=== PATIENT | male | born 1950 | race Caucasian/White ===

== ENCOUNTER 2017-03-24 16:16 | Emergency (ER) | payer MEDICARE, OTHER ==
[~2017-03-24] VITALS: Ht 198.1 cm; Wt 138.8 kg
[~2017-03-24 16:16] MED LIST: ASPI81CH PO; CEFACLOR PO; CHOL10002 PO; Coumadin3 MG PO; GABA800 PO; HYDR1TAB94 PO; WARF6 PO
[2017-03-24 17:12] LABS: BASOPHILS ABSOLUTE AUTO 0.02 K/mm3 (0.00-0.23); BASOPHILS PERCENT AUTO 0 % (0-2); EOSINOPHILS ABSOLUTE AUTO 0.11 K/mm3 (0.00-0.68); EOSINOPHILS PERCENT AUTO 1 % (0-6); Hematocrit 46.4 % (37.0-53.0); Hemoglobin 15.7 g/dL (13.5-17.5); IMMATURE GRAN ABSOLUTE AUTO 0.02 K/mm3 (0.00-0.10); IMMATURE GRAN PERCENT AUTO 0 % (0-1); LYMPHOCYTES ABSOLUTE AUTO 1.37 K/mm3 (0.84-5.20); LYMPHOCYTES PERCENT AUTO 15 % (21-46); MONOCYTES ABSOLUTE AUTO 0.94 K/mm3 (0.16-1.47); MONOCYTES PERCENT AUTO 10 % (4-13); Mean Corpuscular HGB 29.6 pg (26.0-34.0); Mean Corpuscular HGB Conc 33.8 g/dL (31.5-36.5); Mean Corpuscular Volume 87 fL (80-100); Mean Platelet Volume 11.4 fL (9.1-12.4); NEUTROPHILS ABSOLUTE AUTO 6.64 K/mm3 (1.96-9.15); NEUTROPHILS PERCENT AUTO 73 % (41-73); Platelet Count 242 K/mm3 (150-400); RDW Coefficient Variation 13.3 % (11.7-14.2); RDW Standard Deviation 42.5 fL (35.1-46.3); Red Blood Cell Count 5.31 M/mm3 (4.30-5.90)
[2017-03-24 18:38] LABS: Alanine Aminotransfer (ALT/SGP 28 U/L (12-78); Albumin, Blood 3.4 g/dL (3.4-5.0); Albumin/Globulin Ratio 0.9 (0.8-1.8); Alk Phos 68 U/L (50-136); Anion Gap 8 mmol/L (6-16); Aspartate Aminotrans (AST/SGOT 24 U/L (12-37); Bilirubin, Total 0.7 mg/dL (0.1-1.0); Blood Urea Nitrogen 17 mg/dL (8-24); Bun/Creatinine Ratio 18.5 (12.0-20.0); CO2, Blood 24 mmol/L (21-32); Calcium, Blood 8.6 mg/dL (8.5-10.1); Chloride, Blood 107 mmol/L (98-108); Creatinine, Blood 0.92 mg/dL (0.60-1.20); Globulin, Blood 3.6 g/dL (2.2-4.0); Glomerular Filtration Rate >60 (60-); Glucose, Blood 112 mg/dL (70-99); Sodium, Blood 139 mmol/L (136-145); Troponin I <0.015 ng/mL (0.000-0.040)
[2017-03-24] MEDS ORDERED: ASPI325 PO (19:18)
[2017-03-24] MEDS ORDERED: CHOL10002 PO (19:20)
== END 2017-03-24 20:04 | disposition home or self-care (01) ==
LOC: ER 16:16
PROVIDERS: Physician Assistant
DX: I48.91 Unspecified atrial fibrillation (principal); Z88.0 Allergy status to penicillin; Z88.2 Allergy status to sulfonamides; Z79.899 Other long term (current) drug therapy; Z79.01 Long term (current) use of anticoagulants; Z79.82 Long term (current) use of aspirin; E11.9 Type 2 diabetes mellitus without complications; Z86.73 Personal history of transient ischemic attack (TIA), and cerebral infarction without residual deficits; Z85.46 Personal history of malignant neoplasm of prostate
CPT/HCPCS: 71046; 80053; 83880; 84484; 85025; 93005; 93010; 99284

== ENCOUNTER 2017-03-31 13:02 | Observation (INO) | payer MEDICARE, OTHER, SELFPAY ==
[~2017-03-31] VITALS: Ht 195.6 cm; Wt 138.5 kg
[~2017-03-31 13:02] MED LIST changes: +ASPI325 PO
[2017-03-31 16:31] LABS: Anion Gap 6 mmol/L (6-16); Blood Urea Nitrogen 14 mg/dL (8-24); Bun/Creatinine Ratio 17.5 (12.0-20.0); CO2, Blood 27 mmol/L (21-32); Calcium, Blood 8.8 mg/dL (8.5-10.1); Chloride, Blood 106 mmol/L (98-108); Glomerular Filtration Rate >60 (60-); Glucose, Blood 118 mg/dL (70-99); Potassium, Blood 4.1 mmol/L (3.5-5.5); Sodium, Blood 139 mmol/L (136-145)
[2017-04-01] MEDS ORDERED: Flecainide Ace150 MG PO (09:33)
== END 2017-04-01 10:10 | disposition home or self-care (01) ==
LOC: PCU 13:02
PROVIDERS: Internal Medicine Cardiovascular Disease
DX: I48.0 Paroxysmal atrial fibrillation (principal); D68.61 Antiphospholipid syndrome; I10 Essential (primary) hypertension; E66.9 Obesity, unspecified; I51.7 Cardiomegaly; R01.1 Cardiac murmur, unspecified; I34.0 Nonrheumatic mitral (valve) insufficiency; R00.1 Bradycardia, unspecified; I44.0 Atrioventricular block, first degree; Z88.2 Allergy status to sulfonamides; Z88.0 Allergy status to penicillin; Z79.01 Long term (current) use of anticoagulants; Z79.899 Other long term (current) drug therapy; Z79.82 Long term (current) use of aspirin; Z86.73 Personal history of transient ischemic attack (TIA), and cerebral infarction without residual deficits; Z98.890 Other specified postprocedural states
CPT/HCPCS: 36415; 80048; 93005; 93010; 94762; G0378

== ENCOUNTER → 2017-05-21 | Outpatient (CLI) | payer MEDICARE, OTHER, SELFPAY ==
[~2017-05-21] MED LIST changes: +Flecainide Ace150 MG PO
[2017-05-22 14:03] LABS: Stool Occult Blood Guaiac 1 Neg (Neg)
== END ==
LOC: LAB SRC 12:25
PROVIDERS: Physician Assistant
DX: K62.5 Hemorrhage of anus and rectum (principal)
CPT/HCPCS: 82272

== ENCOUNTER 2017-11-23 14:12 | Emergency (ER) | payer MEDICARE, OTHER, SELFPAY ==
[~2017-11-23] VITALS: Ht 190.5 cm; Wt 136.1 kg
[2017-11-23 14:47] LABS: BASOPHILS ABSOLUTE AUTO 0.03 K/mm3 (0.00-0.23); BASOPHILS PERCENT AUTO 0 % (0-2); EOSINOPHILS ABSOLUTE AUTO 0.14 K/mm3 (0.00-0.68); EOSINOPHILS PERCENT AUTO 2 % (0-6); Hematocrit 45.7 % (37.0-53.0); Hemoglobin 15.1 g/dL (13.5-17.5); IMMATURE GRAN ABSOLUTE AUTO 0.04 K/mm3 (0.00-0.10); IMMATURE GRAN PERCENT AUTO 0 % (0-1); LYMPHOCYTES ABSOLUTE AUTO 1.17 K/mm3 (0.84-5.20); LYMPHOCYTES PERCENT AUTO 12 % (21-46); MONOCYTES ABSOLUTE AUTO 0.85 K/mm3 (0.16-1.47); MONOCYTES PERCENT AUTO 9 % (4-13); Mean Corpuscular HGB 28.7 pg (26.0-34.0); Mean Corpuscular Volume 87 fL (80-100); Mean Platelet Volume 10.5 fL (9.1-12.4); NEUTROPHILS ABSOLUTE AUTO 7.38 K/mm3 (1.96-9.15); NEUTROPHILS PERCENT AUTO 77 % (41-73); Platelet Count 342 K/mm3 (150-400); RDW Coefficient Variation 12.4 % (11.7-14.2); RDW Standard Deviation 39.2 fL (35.1-46.3); Red Blood Cell Count 5.26 M/mm3 (4.30-5.90); White Blood Cell Count 9.61 K/mm3 (4.00-11.30)
== END 2017-11-23 15:32 | disposition home or self-care (01) ==
LOC: ER 14:12
PROVIDERS: Internal Medicine
DX: I48.91 Unspecified atrial fibrillation (principal); I10 Essential (primary) hypertension; E66.9 Obesity, unspecified; Z86.73 Personal history of transient ischemic attack (TIA), and cerebral infarction without residual deficits
CPT/HCPCS: 36415; 84484; 85025; 92960; 93005; 93010; 99285-25; J7030

== ENCOUNTER 2018-03-03 11:38 | Emergency (ER) | payer MEDICARE, OTHER ==
[~2018-03-03] VITALS: Ht 195.6 cm; Wt 134.3 kg
[2018-03-03 12:07] LABS: BASOPHILS ABSOLUTE AUTO 0.04 K/mm3 (0.00-0.23); BASOPHILS PERCENT AUTO 1 % (0-2); EOSINOPHILS ABSOLUTE AUTO 0.16 K/mm3 (0.00-0.68); EOSINOPHILS PERCENT AUTO 2 % (0-6); Hematocrit 47.4 % (37.0-53.0); Hemoglobin 15.8 g/dL (13.5-17.5); IMMATURE GRAN ABSOLUTE AUTO 0.05 K/mm3 (0.00-0.10); IMMATURE GRAN PERCENT AUTO 1 % (0-1); LYMPHOCYTES ABSOLUTE AUTO 0.87 K/mm3 (0.84-5.20); LYMPHOCYTES PERCENT AUTO 11 % (21-46); MONOCYTES ABSOLUTE AUTO 0.95 K/mm3 (0.16-1.47); MONOCYTES PERCENT AUTO 12 % (4-13); Mean Corpuscular HGB 29.1 pg (26.0-34.0); Mean Corpuscular HGB Conc 33.3 g/dL (31.5-36.5); Mean Platelet Volume 10.8 fL (9.1-12.4); NEUTROPHILS ABSOLUTE AUTO 5.99 K/mm3 (1.96-9.15); NEUTROPHILS PERCENT AUTO 74 % (41-73); Platelet Count 291 K/mm3 (150-400); RDW Coefficient Variation 14.5 % (11.7-14.2); RDW Standard Deviation 45.6 fL (35.1-46.3); Red Blood Cell Count 5.43 M/mm3 (4.30-5.90); White Blood Cell Count 8.06 K/mm3 (4.00-11.30)
[2018-03-03 12:10] LABS: Mean Corpuscular Volume 87 fL (80-100)
[2018-03-03 12:19] LABS: International Normalized Ratio 2.71; Prothrombin Time Results 26.4 Sec (9.7-11.5)
[2018-03-03 12:34] LABS: Alanine Aminotransfer (ALT/SGP 30 U/L (12-78); Albumin, Blood 3.5 g/dL (3.4-5.0); Albumin/Globulin Ratio 0.9 (0.8-1.8); Alk Phos 70 U/L (50-136); Anion Gap 7 mmol/L (6-16); Aspartate Aminotrans (AST/SGOT 25 U/L (12-37); Bilirubin, Total 0.8 mg/dL (0.1-1.0); Blood Urea Nitrogen 13 mg/dL (8-24); Bun/Creatinine Ratio 13.7 (12.0-20.0); CO2, Blood 26 mmol/L (21-32); Calcium, Blood 9.1 mg/dL (8.5-10.1); Chloride, Blood 107 mmol/L (98-108); Creatinine, Blood 0.95 mg/dL (0.60-1.20); Globulin, Blood 3.9 g/dL (2.2-4.0); Glomerular Filtration Rate >60 (60-); Glucose, Blood 123 mg/dL (70-99); Potassium, Blood 4.4 mmol/L (3.5-5.5); Sodium, Blood 140 mmol/L (136-145); Total Protein, Blood 7.4 g/dL (6.4-8.2)
[2018-03-03 12:35] LABS: Troponin I <0.015 ng/mL (0.000-0.040)
== END 2018-03-03 13:45 | disposition home or self-care (01) ==
LOC: ER 11:38
PROVIDERS: Physician Assistant
DX: I48.91 Unspecified atrial fibrillation (principal); E11.9 Type 2 diabetes mellitus without complications; Z88.0 Allergy status to penicillin; Z88.2 Allergy status to sulfonamides; Z79.899 Other long term (current) drug therapy; Z79.82 Long term (current) use of aspirin; Z79.01 Long term (current) use of anticoagulants; Z86.73 Personal history of transient ischemic attack (TIA), and cerebral infarction without residual deficits
CPT/HCPCS: 36415; 71046; 80053; 84484; 85025; 85610; 92960; 93005; 93010; 99285-25; J7030

== ENCOUNTER 2018-05-27 14:35 | Emergency (ER) | payer MEDICARE, OTHER ==
[~2018-05-27] VITALS: Ht 195.6 cm; Wt 136.1 kg
[2018-05-27 15:16] LABS: BASOPHILS ABSOLUTE AUTO 0.02 K/mm3 (0.00-0.23); BASOPHILS PERCENT AUTO 0 % (0-2); EOSINOPHILS PERCENT AUTO 1 % (0-6); Hematocrit 43.5 % (37.0-53.0); Hemoglobin 13.9 g/dL (13.5-17.5); IMMATURE GRAN ABSOLUTE AUTO 0.03 K/mm3 (0.00-0.10); IMMATURE GRAN PERCENT AUTO 0 % (0-1); LYMPHOCYTES ABSOLUTE AUTO 0.81 K/mm3 (0.84-5.20); LYMPHOCYTES PERCENT AUTO 11 % (21-46); MONOCYTES PERCENT AUTO 5 % (4-13); Mean Corpuscular HGB 28.4 pg (26.0-34.0); Mean Corpuscular Volume 89 fL (80-100); NEUTROPHILS ABSOLUTE AUTO 6.32 K/mm3 (1.96-9.15); NEUTROPHILS PERCENT AUTO 82 % (41-73); Platelet Count 296 K/mm3 (150-400); RDW Coefficient Variation 12.6 % (11.7-14.2); RDW Standard Deviation 41.3 fL (35.1-46.3); White Blood Cell Count 7.68 K/mm3 (4.00-11.30)
[2018-05-27 15:40] LABS: Alanine Aminotransfer (ALT/SGP 34 U/L (12-78); Albumin, Blood 3.3 g/dL (3.4-5.0); Albumin/Globulin Ratio 0.9 (0.8-1.8); Alk Phos 67 U/L (50-136); Anion Gap 7 mmol/L (6-16); Aspartate Aminotrans (AST/SGOT 19 U/L (12-37); Bilirubin, Total 0.4 mg/dL (0.1-1.0); Blood Urea Nitrogen 12 mg/dL (8-24); Bun/Creatinine Ratio 14.4 (12.0-20.0); CO2, Blood 28 mmol/L (21-32); Calcium, Blood 8.7 mg/dL (8.5-10.1); Chloride, Blood 108 mmol/L (98-108); Creatinine, Blood 0.83 mg/dL (0.60-1.20); Globulin, Blood 3.6 g/dL (2.2-4.0); Glomerular Filtration Rate >60 (60-); Glucose, Blood 205 mg/dL (70-99); Potassium, Blood 4.3 mmol/L (3.5-5.5); Sodium, Blood 143 mmol/L (136-145); Total Protein, Blood 6.9 g/dL (6.4-8.2); Troponin I <0.015 ng/mL (0.000-0.040)
[2018-05-27 15:46] LABS: International Normalized Ratio 3.37
== END 2018-05-27 20:00 | disposition home or self-care (01) ==
LOC: ER 14:35
PROVIDERS: Physician Assistant
DX: I48.91 Unspecified atrial fibrillation (principal); Z88.0 Allergy status to penicillin; Z88.2 Allergy status to sulfonamides; Z79.899 Other long term (current) drug therapy; Z79.01 Long term (current) use of anticoagulants; Z79.82 Long term (current) use of aspirin; E11.9 Type 2 diabetes mellitus without complications; Z86.73 Personal history of transient ischemic attack (TIA), and cerebral infarction without residual deficits; Z85.46 Personal history of malignant neoplasm of prostate
CPT/HCPCS: 36415; 71046; 80053; 84484; 85025; 85610; 92960; 93005; 93010; 99285-25

== ENCOUNTER → 2018-06-13 | Outpatient (CLI) | payer MEDICARE, OTHER | END | disposition home or self-care (01) | LOC: LAB SHORT 15:04 → PLD 15:04 | DX: D22.5 Melanocytic nevi of trunk (principal) | CPT/HCPCS: 88305 ==

== ENCOUNTER 2018-07-14 08:24 | Emergency (ER) | payer MEDICARE, OTHER ==
[~2018-07-14] VITALS: Ht 195.6 cm; Wt 136.1 kg
[2018-07-14] MEDS ORDERED: PRED5 PO (08:57)
[2018-07-14] MEDS ORDERED: WARF4 PO (08:57)
[2018-07-14 09:30] LABS: BASOPHILS ABSOLUTE AUTO 0.05 K/mm3 (0.00-0.23); BASOPHILS PERCENT AUTO 1 % (0-2); EOSINOPHILS ABSOLUTE AUTO 0.14 K/mm3 (0.00-0.68); EOSINOPHILS PERCENT AUTO 2 % (0-6); Hemoglobin 10.9 g/dL (13.5-17.5); IMMATURE GRAN ABSOLUTE AUTO 0.03 K/mm3 (0.00-0.10); IMMATURE GRAN PERCENT AUTO 1 % (0-1); LYMPHOCYTES PERCENT AUTO 12 % (21-46); MONOCYTES ABSOLUTE AUTO 0.66 K/mm3 (0.16-1.47); MONOCYTES PERCENT AUTO 11 % (4-13); Mean Corpuscular HGB 26.5 pg (26.0-34.0); Mean Corpuscular HGB Conc 31.1 g/dL (31.5-36.5); Mean Corpuscular Volume 85 fL (80-100); NEUTROPHILS ABSOLUTE AUTO 4.28 K/mm3 (1.96-9.15); NEUTROPHILS PERCENT AUTO 73 % (41-73); Platelet Count 273 K/mm3 (150-400); RDW Coefficient Variation 13.2 % (11.7-14.2); RDW Standard Deviation 40.5 fL (35.1-46.3); Red Blood Cell Count 4.12 M/mm3 (4.30-5.90); White Blood Cell Count 5.86 K/mm3 (4.00-11.30)
[2018-07-14 09:45] LABS: International Normalized Ratio 3.07; Prothrombin Time Results 29.4 Sec (9.7-11.5)
[2018-07-14 09:56] LABS: Alanine Aminotransfer (ALT/SGP 26 U/L (12-78); Albumin, Blood 3.3 g/dL (3.4-5.0); Alk Phos 59 U/L (50-136); Anion Gap 5 mmol/L (6-16); Aspartate Aminotrans (AST/SGOT 17 U/L (12-37); Bilirubin, Total 0.5 mg/dL (0.1-1.0); Blood Urea Nitrogen 10 mg/dL (8-24); Bun/Creatinine Ratio 11.6 (12.0-20.0); CO2, Blood 26 mmol/L (21-32); Calcium, Blood 8.3 mg/dL (8.5-10.1); Chloride, Blood 109 mmol/L (98-108); Creatinine, Blood 0.86 mg/dL (0.60-1.20); Globulin, Blood 3.4 g/dL (2.2-4.0); Glomerular Filtration Rate >60 (60-); Glucose, Blood 156 mg/dL (70-99); Potassium, Blood 3.6 mmol/L (3.5-5.5); Sodium, Blood 140 mmol/L (136-145); Total Protein, Blood 6.7 g/dL (6.4-8.2); Troponin I 0.025 ng/mL (0.000-0.040)
== END 2018-07-14 14:00 | disposition home or self-care (01) ==
LOC: ER 08:24
PROVIDERS: Physician Assistant
DX: I48.91 Unspecified atrial fibrillation (principal); Z88.0 Allergy status to penicillin; Z88.2 Allergy status to sulfonamides; Z79.01 Long term (current) use of anticoagulants; Z79.52 Long term (current) use of systemic steroids; E11.9 Type 2 diabetes mellitus without complications; Z85.46 Personal history of malignant neoplasm of prostate
CPT/HCPCS: 36415; 71046; 80053; 83880; 84484; 85025; 85610; 92960; 93005; 93010; 96361-59; 96374-59; 99285-25; J2704; J7030

== ENCOUNTER 2018-08-12 16:33 | Inpatient (IN) | payer MEDICARE, OTHER ==
[~2018-08-12] VITALS: Ht 195.6 cm; Wt 137.8 kg
[~2018-08-12 16:33] MED LIST changes: +PRED5 PO; +WARF4 PO
[2018-08-12] MEDS ORDERED: ASPI81CH PO (16:59)
[2018-08-12] MEDS ORDERED: GABA800 PO (16:59)
[2018-08-12] MEDS ORDERED: CHOL10002 PO (16:59)
[2018-08-12 17:10] LABS: BASOPHILS ABSOLUTE AUTO 0.04 K/mm3 (0.00-0.23); BASOPHILS PERCENT AUTO 1 % (0-2); EOSINOPHILS ABSOLUTE AUTO 0.16 K/mm3 (0.00-0.68); EOSINOPHILS PERCENT AUTO 3 % (0-6); Hematocrit 32.1 % (37.0-53.0); Hemoglobin 9.6 g/dL (13.5-17.5); IMMATURE GRAN ABSOLUTE AUTO 0.02 K/mm3 (0.00-0.10); IMMATURE GRAN PERCENT AUTO 0 % (0-1); LYMPHOCYTES ABSOLUTE AUTO 0.81 K/mm3 (0.84-5.20); LYMPHOCYTES PERCENT AUTO 13 % (21-46); MONOCYTES ABSOLUTE AUTO 0.75 K/mm3 (0.16-1.47); MONOCYTES PERCENT AUTO 12 % (4-13); Mean Corpuscular HGB 24.4 pg (26.0-34.0); Mean Corpuscular HGB Conc 29.9 g/dL (31.5-36.5); Mean Corpuscular Volume 82 fL (80-100); Mean Platelet Volume 11.4 fL (9.1-12.4); NEUTROPHILS ABSOLUTE AUTO 4.38 K/mm3 (1.96-9.15); NEUTROPHILS PERCENT AUTO 71 % (41-73); Platelet Count 320 K/mm3 (150-400); RDW Coefficient Variation 13.7 % (11.7-14.2); Red Blood Cell Count 3.93 M/mm3 (4.30-5.90); White Blood Cell Count 6.16 K/mm3 (4.00-11.30)
[2018-08-12 17:21] LABS: Alanine Aminotransfer (ALT/SGP 26 U/L (12-78); Albumin, Blood 3.7 g/dL (3.4-5.0); Alk Phos 66 U/L (50-136); Anion Gap 5 mmol/L (6-16); Aspartate Aminotrans (AST/SGOT 20 U/L (12-37); Bilirubin, Total 0.4 mg/dL (0.1-1.0); Blood Urea Nitrogen 16 mg/dL (8-24); Bun/Creatinine Ratio 18.5 (12.0-20.0); CO2, Blood 28 mmol/L (21-32); Calcium, Blood 8.8 mg/dL (8.5-10.1); Chloride, Blood 106 mmol/L (98-108); Creatinine, Blood 0.87 mg/dL (0.60-1.20); Globulin, Blood 3.7 g/dL (2.2-4.0); Glomerular Filtration Rate >60 (60-); Glucose, Blood 124 mg/dL (70-99); Potassium, Blood 3.8 mmol/L (3.5-5.5); Sodium, Blood 139 mmol/L (136-145); Total Protein, Blood 7.4 g/dL (6.4-8.2)
[2018-08-12 17:41] LABS: International Normalized Ratio 2.15; Prothrombin Time Results 21.3 Sec (9.7-11.5)
[2018-08-12 22:54] LABS: Hematocrit 28.2 % (37.0-53.0); Hemoglobin 8.6 g/dL (13.5-17.5)
[2018-08-13 04:52] LABS: Hematocrit 28.8 % (37.0-53.0); Hemoglobin 8.7 g/dL (13.5-17.5); Mean Corpuscular HGB 24.4 pg (26.0-34.0); Mean Corpuscular HGB Conc 30.2 g/dL (31.5-36.5); Mean Corpuscular Volume 81 fL (80-100); Mean Platelet Volume 11.3 fL (9.1-12.4); Platelet Count 290 K/mm3 (150-400); RDW Coefficient Variation 13.7 % (11.7-14.2); RDW Standard Deviation 40.1 fL (35.1-46.3); Red Blood Cell Count 3.56 M/mm3 (4.30-5.90)
[2018-08-13 05:06] LABS: International Normalized Ratio 2.09; Prothrombin Time Results 20.7 Sec (9.7-11.5)
[2018-08-13 05:17] LABS: Anion Gap 6 mmol/L (6-16); Blood Urea Nitrogen 13 mg/dL (8-24); Bun/Creatinine Ratio 15.7 (12.0-20.0); CO2, Blood 27 mmol/L (21-32); Calcium, Blood 8.6 mg/dL (8.5-10.1); Chloride, Blood 108 mmol/L (98-108); Creatinine, Blood 0.83 mg/dL (0.60-1.20); Glomerular Filtration Rate >60 (60-); Glucose, Blood 115 mg/dL (70-99); Potassium, Blood 4.1 mmol/L (3.5-5.5); Sodium, Blood 141 mmol/L (136-145)
--- NOTE | 2018-08-13 06:34 | NUR ---
PCU NOC SHIFT - ADMIT - SUMMARY PATIENT ALERT AND ORIENTED X4. ON ROOM AIR L/S CLEAR. HEART MURMUR NOTED - MILD. PATIENT DENIES ANY PAIN T/O SHIFT. PATIENT HAVING BRIGHT RED LIQUID STOOL. MD MCCORMACK CONSULTED IN ER - PATIENT TO HAVE GI SCOPE AT 1200 TODAY. PATIENT UNDERSTAND SITUATION AND DENIES ANY QUESTIONS. PATIENT HYPERTENSIVE T/O SHIFT. WILL CONTINUE TO MONITOR AND REPORT TO DAYSHIFT RN.
--- NOTE | 2018-08-13 07:20 | NUR ---
RECEIVED REPORT FROM MICKIE NGUYEN, AND ASSUMED CARE OF PT.
--- NOTE | 2018-08-13 11:35 | NUR ---
Pt taken to Day surgery, will await return. Stable at this time.
--- NOTE | 2018-08-13 11:42 | NUR ---
PT TRANSPORTED TO [facility]. AGREES WITH PLANNED PROCEDURE. STATES HE DRANK BOWEL PREP, LAST BM HE STATES SOME BROWN COLOR BUT NO SOLID.
--- NOTE | 2018-08-13 12:00 | NUR ---
08/13/18 1200 Reuben Walters PATIENT DETERMINED TO BE ASA APPROPRIATE FOR PROPOFOL SEDATION PRIOR TO START OF PROCEDURE BY 3-LEAD EKG REVIEWED WITH PHYSICIAN PRIOR TO START OF PROCEDURE.Patient to ENDO 1History, Chart, Medications and Allergies reviewed before start of procedure.MONITOR INTACT WITH CONTINUOUS PULSE OXIMETRY AND INTERMITTENT BP.O2 VIA N/C INTACT THROUGHOUT SEDATION/PROCEDURE.
--- NOTE | 2018-08-13 12:00 | NUR ---
PATIENT ESCORTED TO GI FOR COLONOSCOPY.
--- NOTE | 2018-08-13 15:38 | NUR ---
NURSING SUMMARY ALERT/ORIENTED X 4. SR ON MONITOR, HR 60'S AND 70'S, HYPERTENSIVE THIS AM, PT STATES THAT HAPPENS WHEN HE IS ANXIOUS LIKE WITH HAVING TO DO A COLONOSCOPY. LUNGS CLEAR/DIMINISHED AT BASES, ROOM AIR, SATS 98%. HYPERACTIVE BOWEL SOUNDS, DRANK HALF OF THE GALLON OF GOLYTELY, REFUSING TO DRINK MORE DUE TO THE TASTE, FREQUENT BM'S OF BROWN LIQUID STOOL. PT WAS NPO OF 0800, WENT FOR COLONOSCOPY AT NOON BUT PT WAS NOT CLEAR ENOUGH FOR DR. MCCORMACK TO VISIUAL. PT WILL NEED TO GO BACK FOR ANOTHER COLONOSCOPY TOMORROW MORNING AT 0800 AFTER TAKING SUREPREP TONIGHT AND IN THE MORNING. DR. MCCORMACK PROVIDED PT'S WITH A PRESCRIPTION FOR SUREPREP BECAUSE PT REFUSES TO DRINK GOLYTELY. IS PICKING THE PRESCRIPTION UP NOW. PLACED HOME MED ORDERS FOR PT TO DRINK 1ST BOTTLE OF SUREPREP AT 1800 TONIGHT, THEN ONLY HAVE WATER AND ICE CHIPS UNTIL 0600 TOMORROW MORNING, PT TO DRINK 2ND BOTTLE OF SUREPREP TOMORROW MORNING AT 0400 FOLLOWED BY WATER AND ICE, NPO AT 0600. COLONOSCOPY SCHEDULED FOR 0800 TOMORRO MORNING. PT IS AWARE OF THE REGIMEN. PT AMBULATES INDEPENDENTLY TO THE BATHROOM. DENIES DIZZINESS. STEADY AMBULATION. RIGHT AC IV SITE INFUSING LR AT 75 ML/HR.
--- NOTE | 2018-08-13 16:27 | NUR ---
REPORT CALLED TO [facility] RN, WHOM WILL ASSUME CARE OF PT WHEN TRANSFERRED TO ROOM 332.
--- NOTE | 2018-08-13 18:15 | NUR ---
SHIFT SUMMARY: TRANSFER FROM [place] [id number] VIA W/C BY CHIEF RELAY TESTER. A/O X 4. DENIES PAIN N/V AND SOB. TOLERATING CLEAR LIQUIDS AND BOWEL PREP STARTED. AT BEDSIDE. PATIENT AWARE OF PLAN OF CARE AND IS AGREEABLE.
--- NOTE | 2018-08-14 07:44 | NUR ---
PT TRANSPORTED TO [facility]. AGREES WITH PLANNED PROCEDURE. STATES LAST BM CLEAR.
--- NOTE | 2018-08-14 08:07 | NUR ---
0730 PT TO DAY SURGERY. CLEAR BM PIOR TO DAY SURGERY ARRIVING.
--- NOTE | 2018-08-14 08:31 | NUR ---
08/14/18 0831 Reuben Walters PATIENT DETERMINED TO BE ASA APPROPRIATE FOR PROPOFOL SEDATION PRIOR TO START OF PROCEDURE BY 3-LEAD EKG REVIEWED WITH PHYSICIAN PRIOR TO START OF PROCEDURE.Patient to ENDO 1History, Chart, Medications and Allergies reviewed before start of procedure.Glasses RemovedMONITOR INTACT WITH CONTINUOUS PULSE OXIMETRY AND INTERMITTENT BP.O2 VIA N/C INTACT THROUGHOUT SEDATION/PROCEDURE.
[2018-08-14 12:05] LABS: BASOPHILS ABSOLUTE AUTO 0.03 K/mm3 (0.00-0.23); BASOPHILS PERCENT AUTO 1 % (0-2); EOSINOPHILS ABSOLUTE AUTO 0.18 K/mm3 (0.00-0.68); EOSINOPHILS PERCENT AUTO 4 % (0-6); Hematocrit 28.7 % (37.0-53.0); Hemoglobin 8.6 g/dL (13.5-17.5); IMMATURE GRAN ABSOLUTE AUTO 0.01 K/mm3 (0.00-0.10); IMMATURE GRAN PERCENT AUTO 0 % (0-1); LYMPHOCYTES ABSOLUTE AUTO 0.64 K/mm3 (0.84-5.20); LYMPHOCYTES PERCENT AUTO 13 % (21-46); MONOCYTES ABSOLUTE AUTO 0.64 K/mm3 (0.16-1.47); MONOCYTES PERCENT AUTO 13 % (4-13); Mean Corpuscular HGB 24.7 pg (26.0-34.0); Mean Corpuscular Volume 83 fL (80-100); Mean Platelet Volume 11.2 fL (9.1-12.4); NEUTROPHILS ABSOLUTE AUTO 3.58 K/mm3 (1.96-9.15); NEUTROPHILS PERCENT AUTO 71 % (41-73); Platelet Count 267 K/mm3 (150-400); RDW Standard Deviation 41.7 fL (35.1-46.3); Red Blood Cell Count 3.48 M/mm3 (4.30-5.90); White Blood Cell Count 5.08 K/mm3 (4.00-11.30)
[2018-08-14 12:19] LABS: International Normalized Ratio 1.8; Prothrombin Time Results 18.1 Sec (9.7-11.5)
[2018-08-14] MEDS ORDERED: HYDR25SUP PR (14:35)
--- NOTE | 2018-08-14 15:34 | NUR ---
1458 PATIENT DCD HOME WITH VIA PERSONAL CAR, TRANSPORTED VIA W/C. ALL MEDICATION ORDERS REVIEWED WITH PATIENT AND ALONG WITH EDUCATION. IV REMOVED WITH NO ISSUES. ALL BELONGINGS SENT WITH PATIENT.
== END 2018-08-14 14:58 | disposition home or self-care (01) | DRG 394 ==
LOC: ER 16:33 → MEDS 18:49 → PCU 18:49 → MEDS 20:29 → PCU 20:31 → MEDS 08-13 16:36
PROVIDERS: Emergency Medicine; Internal Medicine; Internal Medicine Gastroenterology; ADMIT Internal Medicine
PROC: 0DBN8ZX Excision of Sigmoid Colon, Via Natural or Artificial Opening Endoscopic, Diagnostic (ICD-10-PCS; 2018-08-14)
PROC: 0DBC8ZX Excision of Ileocecal Valve, Via Natural or Artificial Opening Endoscopic, Diagnostic (ICD-10-PCS; 2018-08-14)
PROC: 0DBH8ZX Excision of Cecum, Via Natural or Artificial Opening Endoscopic, Diagnostic (ICD-10-PCS; 2018-08-14)
PROC: 0W3P8ZZ Control Bleeding in Gastrointestinal Tract, Via Natural or Artificial Opening Endoscopic (ICD-10-PCS; principal; 2018-08-14 08:00)
PROC: 0DBK8ZX Excision of Ascending Colon, Via Natural or Artificial Opening Endoscopic, Diagnostic (ICD-10-PCS; 2018-08-14 08:00)
DX: K62.7 Radiation proctitis (principal); D62 Acute posthemorrhagic anemia; D68.61 Antiphospholipid syndrome; M35.3 Polymyalgia rheumatica; I48.91 Unspecified atrial fibrillation; K57.30 Diverticulosis of large intestine without perforation or abscess without bleeding; K64.8 Other hemorrhoids; E11.9 Type 2 diabetes mellitus without complications; Z86.73 Personal history of transient ischemic attack (TIA), and cerebral infarction without residual deficits; Z79.4 Long term (current) use of insulin; Z85.46 Personal history of malignant neoplasm of prostate; Z79.82 Long term (current) use of aspirin; Z79.01 Long term (current) use of anticoagulants; Z91.09 Other allergy status, other than to drugs and biological substances
CPT/HCPCS: 36415; 74176; 80048; 80053; 85014; 85018; 85025; 85027; 85610; 85730; 86850; 86900; 86901; 93005; 93010; 99285-25; C9113; J2704; J7120

== ENCOUNTER 2018-08-25 08:43 | Emergency (ER) | payer MEDICARE, OTHER ==
[~2018-08-25] VITALS: Ht 188 cm; Wt 113.4 kg
[~2018-08-25 08:43] MED LIST changes: +HYDR25SUP PR
[2018-08-25 10:09] LABS: BASOPHILS ABSOLUTE AUTO 0.04 K/mm3 (0.00-0.23); BASOPHILS PERCENT AUTO 1 % (0-2); EOSINOPHILS ABSOLUTE AUTO 0.19 K/mm3 (0.00-0.68); EOSINOPHILS PERCENT AUTO 4 % (0-6); Hematocrit 34.9 % (37.0-53.0); Hemoglobin 10.2 g/dL (13.5-17.5); IMMATURE GRAN ABSOLUTE AUTO 0.03 K/mm3 (0.00-0.10); IMMATURE GRAN PERCENT AUTO 1 % (0-1); LYMPHOCYTES ABSOLUTE AUTO 0.58 K/mm3 (0.84-5.20); LYMPHOCYTES PERCENT AUTO 11 % (21-46); MONOCYTES ABSOLUTE AUTO 0.57 K/mm3 (0.16-1.47); MONOCYTES PERCENT AUTO 11 % (4-13); Mean Corpuscular HGB 24.1 pg (26.0-34.0); Mean Corpuscular HGB Conc 29.2 g/dL (31.5-36.5); Mean Platelet Volume 11.6 fL (9.1-12.4); NEUTROPHILS PERCENT AUTO 74 % (41-73); Platelet Count 352 K/mm3 (150-400); RDW Coefficient Variation 15.8 % (11.7-14.2); RDW Standard Deviation 45.1 fL (35.1-46.3); Red Blood Cell Count 4.24 M/mm3 (4.30-5.90); White Blood Cell Count 5.41 K/mm3 (4.00-11.30)
[2018-08-25 10:14] LABS: Mean Corpuscular Volume 82 fL (80-100)
[2018-08-25 11:05] LABS: Alanine Aminotransfer (ALT/SGP 23 U/L (12-78); Albumin, Blood 3.6 g/dL (3.4-5.0); Alk Phos 67 U/L (50-136); Anion Gap 7 mmol/L (6-16); Aspartate Aminotrans (AST/SGOT 27 U/L (12-37); Bilirubin, Total 0.9 mg/dL (0.1-1.0); Blood Urea Nitrogen 12 mg/dL (8-24); Bun/Creatinine Ratio 12.7 (12.0-20.0); CO2, Blood 27 mmol/L (21-32); Calcium, Blood 9.1 mg/dL (8.5-10.1); Chloride, Blood 106 mmol/L (98-108); Creatinine, Blood 0.94 mg/dL (0.60-1.20); Globulin, Blood 3.7 g/dL (2.2-4.0); Glomerular Filtration Rate >60 (60-); Glucose, Blood 113 mg/dL (70-99); Potassium, Blood 4.6 mmol/L (3.5-5.5); Sodium, Blood 140 mmol/L (136-145); Total Protein, Blood 7.3 g/dL (6.4-8.2); Troponin I <0.015 ng/mL (0.000-0.040)
[2018-08-25 11:42] LABS: International Normalized Ratio 2.13; Prothrombin Time Results 21.1 Sec (9.7-11.5)
== END 2018-08-25 13:11 | disposition home or self-care (01) ==
LOC: ER 08:43
PROVIDERS: Emergency Medicine
DX: R00.2 Palpitations (principal); E11.9 Type 2 diabetes mellitus without complications; I48.91 Unspecified atrial fibrillation; Z86.73 Personal history of transient ischemic attack (TIA), and cerebral infarction without residual deficits; Z88.0 Allergy status to penicillin; Z88.2 Allergy status to sulfonamides; Z88.8 Allergy status to other drugs, medicaments and biological substances; Z91.041 Radiographic dye allergy status; Z79.01 Long term (current) use of anticoagulants; Z79.82 Long term (current) use of aspirin
CPT/HCPCS: 71046; 80053; 83690; 84484; 85025; 85610; 93005; 93010; 99285-25

== ENCOUNTER → 2019-04-05 | Outpatient (CLI) | payer MEDICARE, OTHER ==
[2019-04-05 14:55] LABS: Microalb/Creat Ratio UR, Rand 40.156 mg/g (0.000-30.000); Microalbumin, Random Urine 25.7 mg/L (0.000-20.000)
== END | disposition home or self-care (01) ==
LOC: LAB SHORT 13:01 → LAB 13:01
PROVIDERS: Hospitalist
DX: I12.9 Hypertensive chronic kidney disease with stage 1 through stage 4 chronic kidney disease, or unspecified chronic kidney disease (principal); N18.9 Chronic kidney disease, unspecified; R80.9 Proteinuria, unspecified
CPT/HCPCS: 82043; 82570

== ENCOUNTER 2019-05-10 10:32 | Day surgery (SDC) | payer MEDICARE, OTHER ==
[~2019-05-10] VITALS: Ht 195.6 cm; Wt 136.0 kg
[2019-05-10] MEDS ORDERED: PACERONE100 M1 PO (11:21)
[2019-05-10] MEDS ORDERED: LOSA25 PO (11:22)
--- NOTE | 2019-05-10 12:10 | NUR ---
PT TOLERATES MARBIN PROCEDURE WELL. VSS. NADN. PROVIDER DISCUSSING PLAN OF CARE.
== END 2019-05-10 22:54 | disposition home or self-care (01) ==
LOC: MHTC 10:32
DX: I05.0 Rheumatic mitral stenosis (principal); I48.0 Paroxysmal atrial fibrillation; D68.61 Antiphospholipid syndrome; E66.9 Obesity, unspecified; M35.3 Polymyalgia rheumatica; G47.33 Obstructive sleep apnea (adult) (pediatric); G62.9 Polyneuropathy, unspecified; Z79.01 Long term (current) use of anticoagulants; Z79.82 Long term (current) use of aspirin; Z79.899 Other long term (current) drug therapy; Z85.46 Personal history of malignant neoplasm of prostate; Z86.73 Personal history of transient ischemic attack (TIA), and cerebral infarction without residual deficits; Z87.891 Personal history of nicotine dependence; Z88.0 Allergy status to penicillin; Z88.2 Allergy status to sulfonamides; Z88.8 Allergy status to other drugs, medicaments and biological substances
CPT/HCPCS: 76376; 93312; 93325; J2250; J3010; J7040

== ENCOUNTER 2020-07-13 09:28 | Inpatient (IN) | payer MEDICARE, OTHER ==
[~2020-07-13] VITALS: Ht 195.6 cm; Wt 138.7 kg
[~2020-07-13 09:28] MED LIST changes: +Aspir 8181 MG PO; +LOSA25 PO; +PACERONE100 M1 PO
[2020-07-13] MEDS ORDERED: THERA-D2000 UNIT PO (09:58)
[2020-07-13 10:12] LABS: BASOPHILS ABSOLUTE AUTO 0.04 K/mm3 (0.00-0.23); BASOPHILS PERCENT AUTO 1 % (0-2); EOSINOPHILS PERCENT AUTO 3 % (0-6); Hematocrit 46.9 % (37.0-53.0); Hemoglobin 15.6 g/dL (13.5-17.5); IMMATURE GRAN ABSOLUTE AUTO 0.02 K/mm3 (0.00-0.10); IMMATURE GRAN PERCENT AUTO 0 % (0-1); LYMPHOCYTES ABSOLUTE AUTO 0.87 K/mm3 (0.84-5.20); LYMPHOCYTES PERCENT AUTO 12 % (21-46); MONOCYTES ABSOLUTE AUTO 0.81 K/mm3 (0.16-1.47); MONOCYTES PERCENT AUTO 11 % (4-13); Mean Corpuscular HGB 29.2 pg (26.0-34.0); Mean Corpuscular HGB Conc 33.3 g/dL (31.5-36.5); Mean Corpuscular Volume 88 fL (80-100); Mean Platelet Volume 10.7 fL (9.1-12.4); NEUTROPHILS ABSOLUTE AUTO 5.49 K/mm3 (1.96-9.15); NEUTROPHILS PERCENT AUTO 74 % (41-73); Platelet Count 284 K/mm3 (150-400); RDW Coefficient Variation 13.2 % (11.7-14.2); RDW Standard Deviation 42.5 fL (35.1-46.3); Red Blood Cell Count 5.35 M/mm3 (4.30-5.90); White Blood Cell Count 7.43 K/mm3 (4.00-11.30)
[2020-07-13 10:43] LABS: Alanine Aminotransfer (ALT/SGP 25 U/L (12-78); Albumin, Blood 3.5 g/dL (3.4-5.0); Alk Phos 71 U/L (50-136); Anion Gap 5 mmol/L (6-16); Aspartate Aminotrans (AST/SGOT 20 U/L (12-37); Bilirubin, Total 0.9 mg/dL (0.1-1.0); Blood Urea Nitrogen 12 mg/dL (8-24); Bun/Creatinine Ratio 13.7 (12.0-20.0); CO2, Blood 26 mmol/L (21-32); Calcium, Blood 8.5 mg/dL (8.5-10.1); Chloride, Blood 107 mmol/L (98-108); Creatinine, Blood 0.88 mg/dL (0.60-1.20); Globulin, Blood 3.6 g/dL (2.2-4.0); Glomerular Filtration Rate >60 (60-); Glucose, Blood 103 mg/dL (70-99); Sodium, Blood 138 mmol/L (136-145); Total Protein, Blood 7.1 g/dL (6.4-8.2)
[2020-07-13 10:46] LABS: Troponin I 0.523 ng/mL (0.000-0.040)
[2020-07-13 12:24] LABS: International Normalized Ratio 2.59; Prothrombin Time Results 26.5 Sec (9.7-11.5)
--- NOTE | 2020-07-13 15:08 | NUR ---
PT ARRIVED ON UNIT, TRANSFERRED TO ICU BED, ASKED TO REMOVE HIS SHORTS, AND WITH THAT EXERTION HE EXPRESSED HIS PAIN WENT FROM A 3 TO 6 WITH SOME SHORTNESS OF BREATH. HE BEGAN TO SETTLE IN TO THE BED, MONITORS PLACED. HEART RATE IN THE 120'S LOOKS LIKE AFLUTTER ON THE MONITOR. HE IS STATING THE PAIN WENT UP IN HIS NECK AND JAW AND FELT LIKE HE HAS A "FROG IN HIS THROAT". PT BEGAN TALKING AND TELLING STORIES THROUGH THE ENTIRE ADMISSION PROCESS, I WAS ABLE TO STOP HIS STORY TELLING TO ASK QUESTIONS AND HE CONTINUED. HIS BLOOD PRESSURE REMAINED IN THE 180'S/90'S. WAS CONSULTED AND UPDATED PER STATE ARCHIVIST BLAS, ORDERS RECEIVED FOR LOPRESSOR/METOPROLOL IV 5MG X 2 IF NEEDED ONE DOSE GIVEN @ 1444. WITHIN 10 MINUTES RATE DOWN TO 80'S, WITH BLOOD PRESSURE DROP SLIGHTLY. DR. GARDNER IN TO SEE PT. AT HIS BEDSIDE.
--- NOTE | 2020-07-13 16:00 | NUR ---
FINISHED SEEING PT, PT ALLOWED TO EAT, ASKED FOR SANDWICH, TURKEY SANDWICH GIVEN. DRINKING WATER. TO HEAD HOME TO GET PT'S CPAP MACHINE. PT STATES PAIN AT A 2/10
--- NOTE | 2020-07-13 17:07 | NUR ---
PT QUIETLY RESTING, HEART RATE IN THE 60'S. NO COMPLAINTS.
--- NOTE | 2020-07-13 18:41 | NUR ---
HAS REMAINED AT A 2/10 PAIN OVER THE RIGHT CHEST. HE SAYS IT'S NOT WORTHY OF ANY MEDICATION. HE ATE DINNER WELL, HEART RATE AND BLOOD PRESSURE ARE STABLE. HE IS FULLY ABLE TO BE INDEPENDENT IN HIS BED FOR POSITION CHANGES AND SELF CARE. WILL CONTINUE TO MONITOR HIS HEART RATE AND BLOOD PRESSURE, REPORTING OFF TO THE NEXT SHIFT WHEN ABLE.
--- NOTE | 2020-07-13 20:23 | NUR ---
ASSUMED CARE OF PT AT 1915. REPORT RECEIVED AT BEDSIDE. PT PRESENTS IN BED. ALERT AND ORIENTED. PLEASANT AND COOPERATIVE WITH CARE AND ASSESSMENT. AT TIME OF ASSESSMENT, PT DENIED CHEST PAIN MORE THAN 2/10. SINCE THEN, PT COMPLAINS OF PAIN 4-6/10 IN CHEST AND INTO HIS JAW. CARDIAC RHYTHM REVEALS A 2:1 FLUTTER WITH HEART RATE INTO 120'S. DID ADMINISTER 5 MG METOPROLOL, AND 1 SUBLINGUAL NITROGLYCERIN. THIS AFFECTIVE IN REDUCING PAIN. PT STATES 2/10 MAX PAIN. WILL CONTINUE TO MONITOR. WILL REVIEW CHART AND PLAN OF CARE FOR THIS PT.
--- NOTE | 2020-07-14 00:30 | NUR ---
PT WEARING HIS HOME CPAP MACHINE. HAS BEEN ABLE TO REST WITHOUT COMPLAINTS OF CONTINUED CHEST OR JAW PAIN. WILL CONTINUE TO MONTIOR. PT REMAINS IN 2:1 FLUTTER.
[2020-07-14 00:45] LABS: SARS-Cov-2 (COVID-19) PCR, MMC NEGATIVE (NEGATIVE)
[2020-07-14 03:38] LABS: BASOPHILS ABSOLUTE AUTO 0.05 K/mm3 (0.00-0.23); BASOPHILS PERCENT AUTO 1 % (0-2); EOSINOPHILS ABSOLUTE AUTO 0.23 K/mm3 (0.00-0.68); EOSINOPHILS PERCENT AUTO 4 % (0-6); Hematocrit 45.4 % (37.0-53.0); IMMATURE GRAN ABSOLUTE AUTO 0.02 K/mm3 (0.00-0.10); IMMATURE GRAN PERCENT AUTO 0 % (0-1); LYMPHOCYTES ABSOLUTE AUTO 0.88 K/mm3 (0.84-5.20); LYMPHOCYTES PERCENT AUTO 14 % (21-46); MONOCYTES ABSOLUTE AUTO 0.75 K/mm3 (0.16-1.47); MONOCYTES PERCENT AUTO 12 % (4-13); Mean Corpuscular HGB 28.9 pg (26.0-34.0); Mean Corpuscular Volume 88 fL (80-100); Mean Platelet Volume 10.7 fL (9.1-12.4); NEUTROPHILS PERCENT AUTO 69 % (41-73); Platelet Count 233 K/mm3 (150-400); RDW Coefficient Variation 13.2 % (11.7-14.2); RDW Standard Deviation 42.6 fL (35.1-46.3); Red Blood Cell Count 5.19 M/mm3 (4.30-5.90); White Blood Cell Count 6.13 K/mm3 (4.00-11.30)
[2020-07-14 03:53] LABS: International Normalized Ratio 2.58; Prothrombin Time Results 26.4 Sec (9.7-11.5)
[2020-07-14 04:13] LABS: Alanine Aminotransfer (ALT/SGP 23 U/L (12-78); Albumin/Globulin Ratio 0.9 (0.8-1.8); Alk Phos 64 U/L (50-136); Anion Gap 4 mmol/L (6-16); Aspartate Aminotrans (AST/SGOT 27 U/L (12-37); Bilirubin, Total 0.9 mg/dL (0.1-1.0); Blood Urea Nitrogen 13 mg/dL (8-24); CO2, Blood 26 mmol/L (21-32); Calcium, Blood 8.4 mg/dL (8.5-10.1); Chloride, Blood 108 mmol/L (98-108); Creatinine, Blood 0.93 mg/dL (0.60-1.20); Globulin, Blood 3.3 g/dL (2.2-4.0); Glomerular Filtration Rate >60 (60-); Glucose, Blood 110 mg/dL (70-99); Sodium, Blood 138 mmol/L (136-145); Total Protein, Blood 6.3 g/dL (6.4-8.2)
--- NOTE | 2020-07-14 06:42 | NUR ---
PT HAS NOT HAD ANY FURTHER COMPLAINTS OF ELEVATED CHEST PAIN. HAS REMAINED IN 2:1 FLUTTER. VSS. HAS BEEN ABLE TO REST THROUGHOUT THE NIGHT. WILL CONTINUE TO MONITOR PT, AND WILL REPORT OFF TO ONCOMING RN.
--- NOTE | 2020-07-14 07:30 | NUR ---
BEDSIDE REPORT, PT ARSEN. STATES CHEST PAIN IS "ALWAYS THERE". STATED HE HAD A GOOD NIGHT. VSS. REQUESTS TO BE INDEPENDENT IN ROOM. TOLD THAT HIS ORDERS STATE HE MAY BE UP IN ROOM, BUT TO ALERT STAFF IF HE HAS PAIN OR SHORTNESS OF BREATH.
--- NOTE | 2020-07-14 08:20 | NUR ---
IN TO SEE PATIENT, ECHOCARDIOGRAM ORDERED. PT CONTINUES WITH 2/10 PAIN.
--- NOTE | 2020-07-14 08:30 | NUR ---
QUALITY SYSTEMS ENGINEER PREPARING FOR EXAM, PT STATES ON HIS LEFT SIDE PAIN IS INCREASING IN HIS CHEST. ORDERS WERE RECEIVED FOR NITRO PASTE, PLACED ON ANTERIOR CHEST. ECHO CONTINUES
--- NOTE | 2020-07-14 10:43 | NUR ---
STARTED NTG GTT PER ORDERS. STARTING AT 5MCG/MIN, WATCHING HEART RATE AND BLOOD PRESSURE, WILL TITRATE NECESSARY.
--- NOTE | 2020-07-14 13:43 | NUR ---
MOMO REPORTS NO PAIN, ACKNOWLEDGMENT THAT THERE IS SOMETHING THERE BUT NO PAIN. HE IS VERY HAPPY WITH THE NTG GTT. HE IS "HUNGRY" TOOK IN ALL HIS LUNCH AND THEN ASKED FOR MORE. GIVEN FLAVIA CRACKERS AND PUDDING. TOOK IN MORE WATER AND HE IS ANXIOUS FOR HIS TO BRING HIS COMPUTER FOR HIM TO LOOK AT [employer] VIDEOS.
--- NOTE | 2020-07-14 17:50 | NUR ---
PT TELLING STORIES TO ME WHILE I PICKED UP HIS DINNER TRAY, HE BEGAN TO COMPLAIN OF PAIN GOING UP IN TO HIS NECK. HEART RATE NOTED TO BE INCREASING TO 120'S. NITRO GTT INCREASED TO 10 MCG/MIN. PT DECIDED HE WOULD QUIET DOWN FOR A FEW MINUTES TO SEE HOW IT GOES.
--- NOTE | 2020-07-14 18:17 | NUR ---
PT REPORTS FEELING BETTER, HEART RATE HAS RETURNED TO 60-80. PT'S IV SITE ON LEFT FOREARM STARTED LEAKING. CONNECTION TIGHTENED AND DRESSING CHANGED. PT STATED HE WASN'T HAPPY THAT STARTED HIM ON CHOLESTEROL MEDS AND RESTARTED HIS LISINOPRIL. HE DID TAKE THE LISINOPRIL AND REFUSED THE CHOLESTEROL MEDS. HE CONTINUES TO USE THE URINAL, HASN'T BEEN UP SINCE THIS AM. DOES HAVE HIS LAPTOP AND HEADPHONES NOW. WILL CONTINUE TO MONITOR BP AND CHEST PAIN.
--- NOTE | 2020-07-14 19:26 | NUR ---
ASSUMPTION OF CARE RECEIVED REPORT AT 191 FROM RONAK CORADO. ASSUMED CARE OF PATIENT. PATIENT SITTING UP IN BED WITH HEADPHONES ON, WATCHING LAP TOP. NITRO INFUSING AT 10. WILL REVIEW ORDERS AND TREAT PRESCRIBED.
--- NOTE | 2020-07-15 00:08 | NUR ---
REASSESSMENT NO ACUTE CHANGES FROM PREVIOUS ASSESSMENT. PATIENT SLEEPING WITH HOME CPAP ON. EASILY AWOKE TO VERBAL STIMULI. VITALS STABLE. NITRO INFUSING AT 10. WILL CONTINUE TO MONITOR, CALL LIGHT IN REACH.
--- NOTE | 2020-07-15 04:00 | NUR ---
REASSESSMENT NO ACUTE CHANGES FROM PREVIOUS ASSESSMENT. PATIENT AWAKE, CPAP REMOVED, NOW ON ROOM AIR. FRESH ICE WATER PROVIDED AND URINAL EMPTIED. PATIENT DENIES DISOCMFORTS, NITRO DRIP CONTINUES TO INFUSE. VITALS STABLE. EDUCATED PATIENT THAT LABS WOULD BE DRAWN AROUND 0500. PATIENT VERBALIZED UNDERSTANDING. WILL CONTINUE TO MONITOR, CALL LIGHT IN REACH.
[2020-07-15 05:00] LABS: BASOPHILS ABSOLUTE AUTO 0.05 K/mm3 (0.00-0.23); BASOPHILS PERCENT AUTO 1 % (0-2); EOSINOPHILS ABSOLUTE AUTO 0.24 K/mm3 (0.00-0.68); EOSINOPHILS PERCENT AUTO 4 % (0-6); Hemoglobin 15.5 g/dL (13.5-17.5); IMMATURE GRAN ABSOLUTE AUTO 0.03 K/mm3 (0.00-0.10); IMMATURE GRAN PERCENT AUTO 0 % (0-1); LYMPHOCYTES ABSOLUTE AUTO 0.88 K/mm3 (0.84-5.20); LYMPHOCYTES PERCENT AUTO 13 % (21-46); MONOCYTES ABSOLUTE AUTO 0.72 K/mm3 (0.16-1.47); MONOCYTES PERCENT AUTO 11 % (4-13); Mean Corpuscular HGB 29.4 pg (26.0-34.0); Mean Corpuscular HGB Conc 33.7 g/dL (31.5-36.5); Mean Corpuscular Volume 87 fL (80-100); Mean Platelet Volume 10.4 fL (9.1-12.4); NEUTROPHILS ABSOLUTE AUTO 4.82 K/mm3 (1.96-9.15); NEUTROPHILS PERCENT AUTO 72 % (41-73); Platelet Count 237 K/mm3 (150-400); RDW Coefficient Variation 13.1 % (11.7-14.2); Red Blood Cell Count 5.28 M/mm3 (4.30-5.90); White Blood Cell Count 6.74 K/mm3 (4.00-11.30)
[2020-07-15 05:15] LABS: International Normalized Ratio 1.87; Prothrombin Time Results 19.5 Sec (9.7-11.5)
[2020-07-15 05:18] LABS: Albumin, Blood 3.1 g/dL (3.4-5.0); Anion Gap 4 mmol/L (6-16); Blood Urea Nitrogen 14 mg/dL (8-24); CO2, Blood 27 mmol/L (21-32); Calcium, Blood 8.6 mg/dL (8.5-10.1); Chloride, Blood 106 mmol/L (98-108); Creatinine, Blood 0.88 mg/dL (0.60-1.20); Glomerular Filtration Rate >60 (60-); Glucose, Blood 110 mg/dL (70-99); Magnesium, Blood 2.1 mg/dL (1.6-2.4); Phosphorus, Blood 3.2 mg/dL (2.5-4.9); Potassium, Blood 3.9 mmol/L (3.5-5.5); Sodium, Blood 137 mmol/L (136-145)
--- NOTE | 2020-07-15 06:32 | NUR ---
SHIFT SUMMARY NO ACUTE EVENTS THROUGH SHIFT. PATIENT RESTED THROUGH NIGHT WEARING CPAP, USED URINAL INDEPENDENTLY. NITRO INFUSES AT 10, NO CHEST PAIN AND BLOOD PRESSURE WELL CONTROLLED. HEART RHYTHM REMAINS AFLUTTER WITH A RATE OF 62-64. PATIENT ON RA WHEN AWAKE AND SATS MAINTAIN ABOVE 90%. CALL LIGHT IN REACH, WILL REPORT TO ONCOMING RN.
--- NOTE | 2020-07-15 07:15 | NUR ---
PT STATES HE HAD A GOOD NIGHT AND JUST WOKE UP. STATED THAT THE NITRO GTT (AT 10 MCG/MIN) IS WORKING WELL FOR HIM. DISCUSSED HIS LABS ARE BETTER, THAT WE SHOULD BE HEARING FROM THE DOCTORS THIS AM. PT'S BREAKFAST TO BE HELD AND WE WOULD GO FROM THERE.
--- NOTE | 2020-07-15 08:00 | NUR ---
TALKING WITH THE PATIENT, DISCUSSION ABOUT THE DAY, HE TELLS ME THAT HE IS HAVING A SHARP PAIN "IN THAT SAME SPOT" COMES AND GOES. SPEAKS FOR A FEW MOMENTS AND THEN SAYS, "IT'S GONE". NO CHANGE IN HIS NITRO GTT, REMAINS AT 10 MCG/MIN. BP TOLERATES WELL.
--- NOTE | 2020-07-15 10:00 | NUR ---
AFTER VISIT FROM AND , PT ALLOWED TO EAT BREAKFAST. PT VERY HAPPY WITH HIS BREAKFAST. HE REFUSES THE CHOLESTEROL MEDICATION, STATING HE DOES NOT NEED IT AND HIS CHOLESTEROL ISN'T A PROBLEM. HE ASKED TO BE UP IN THE ROOM AND USE THE TOILET, NOT THE BSC. HE CALLED AFTER BEING UP AND ABOUT THAT HE WAS HAVING CHEST PAIN, HE STATED HIS HEARTRATE WAS UP TO 150 AND HIS PAIN WAS UP TO 4. HE WAS RESTING IN THE BED BY THE TIME I MADE IT TO HIM AND HE SAID IT WAS IMPROVING. NITRO HAS NOT BEEN TITRATED ANY HIGHER. PT DECIDED TO REST FOR NOW.
--- NOTE | 2020-07-15 12:44 | NUR ---
WHEN PATIENT GETS MORE ANIMATED IN HIS STORY TELLING AND HAS THE 2:1 CONDUCTION HE IS NOT PERFUSING TO HIS WRISTS. HE SETTLES BACK DOWN TO THE SLOWER ATRIAL FLUTTER WITHOUT THE BIJEMINY AND HE PERFUSES WELL. HE DID GET IN TO THE CHAIR FOR LUNCH AND HE LIKED HIS LUNCH. HE HAS HIS LAPTOP AND EARPHONES ON AND HIS PHONE IN HIS POSSESSION.
--- NOTE | 2020-07-15 18:21 | NUR ---
MOMO BEGAN FEELING DIFFERENTLY AROUND 1600, HE BEGAN EXPERIENCING "ROCKETS" BEHIND HIS EYES, HE STATES THAT WHEN HIS BLOOD GETS THICK IS WHEN HE EXPERIENCES TIA SYMPTOMS SUCH THE "ROCKETS" BEHIND HIS EYES. HE STATES THE NEXT STEP IS NUMB LIPS. HE EXPLICITLY TOLD ME THAT SOMETHING NEEDS TO BE DONE. I SPOKE WITH PHARMACY IN REGARDS TO HIS CONCERNS. KARSTEN,RP ALSO STATED THAT THE WARFARIN AND HEPARIN WORK DIFFERENTLY ON THE CLOTTING CASCADE BUT HE SHOULD BE COAGULATED QUITE NICELY. TRIED TO EXPLAIN THIS TO THE PATIENT. HE EXPRESSED HIS CONCERNS AGAIN. I PHONED IN REGARDS TO HIS CONCERNS AND HE SUGGESTED I CALL THE HOSPITALIST. I PHONED WHO IS COVERING [facility] HIS PRIMARY DOCTOR. HE EXPLAINED THAT THERE IS ONLY 2 OPTIONS FOR THE PATIENT, THAT HE CONTINUE WITH THE HEPARIN FOR THE PROCEDURE TOMORROW OR STOP THE HEPARIN AND NOT HAVE THE PROCEDURE. I EXPLAINED THIS TO THE PATIENT. THE PATIENT AND HIS EXPRESSED EXTREME DISSATISFACTION WITH THIS REPLY. THEY ASKED THAT I HAVE THE DOCTORS CALL THIS SPECIALIST THAT DEALS WITH [employer] AND CAN RECOMMEND ANOTHER OPTION. I WENT TO TALK TO WHO WAS IN PCU TO LET HIM KNOW OF THE PATIENT'S CONCERNS. HE REITERATED WHAT HE SAID BEFORE, 2 OPTIONS. I ASKED IF HE COULD COME SPEAK WITH THE PATIENT. HE SAID HE MIGHT BE ABLE TO STOP BY. I DID GET A VERBAL ORDER FOR BUSPAR 5MG TONIGHT WITH A REPEAT DOSE. I TOOK IN MOMO'S DINNER TRAY, EXPLAINED ALL THAT I COULD TO BOTH MOMO AND HIS NATIVIDAD. I GAVE THE PATIENT HIS BUSPAR AND ENCOURAGED HIM TO REST. DURING THIS TIME, HIS HEART RATE INCREASED TO 125, HE WAS EXPERIENCING CHEST, NECK AND JAW DISCOMFORT, SO THE NITRO GTT WAS INCREASED TO 15MCG/MIN. AFTER HE FINISHED DINNER AND I CAME TO COLLECT HIS TRAY AND TALK WITH HIM SOME MORE, HE STATED THAT HE WAS GETTING A HEADACHE, SO WE DISCUSSED TURNING THE NITRO BACK DOWN TO 10MCG/MIN. HE WAS IN AGREEMENT. HE HAS NOT COMPLAINED OF ANY FURTHER SYMPTOMS OF HIS "TIA" AND EXPRESSED HIS PLEASURE IN THE BUSPAR. HE IS CURRENTLY RESTING.
--- NOTE | 2020-07-15 19:29 | NUR ---
ASSUMPTION OF CARE RECEIVED REPORT FROM RONAK CORADO. ASSUMED CARE OF PATIENT. PATIENT IN BED, EYES CLOSED, HEADPHONES ON LISTENING TO VIDEOS ON COMPUTER. NO S/S OF DISTRESS, VITALS STABLE. NITRO AND HEPARIN INFUSING CHARTED. WILL REVIEW ORDERS AND TREAT PRESCRIBED.
--- NOTE | 2020-07-15 23:24 | NUR ---
HEPARIN INCREASED HEPARIN TO 15UNIT/KG. SATURINNO NAIK RN WITNESSED.
--- NOTE | 2020-07-16 00:05 | NUR ---
REASSESSMENT NO ACUTE CHANGES FROM PREVIOUS ASSESSMENT. PATIENT ASLEEP WITH CPAP IN PLACE. VITALS STABLE. HEPARIN INFUSING AT 15UNIT/KG AND NITRO INFUSING AT 10/HR. NO S/S OF DISTRESS. CALL LIGHT IN REACH.
--- NOTE | 2020-07-16 04:16 | NUR ---
REASSESSMENT NO ACUTE CHANGES FROM PREVIOUS ASSESSMENT. PATIENT SLEEPING WITH CPAP IN PLACE. VITALS STABLE. NITRO DRIP PLACED ON STANDBY. HEPARIN CONTINUES TO INFUSE AT 15 U/KG. CALL LIGHT IN REACH.
--- NOTE | 2020-07-16 05:24 | NUR ---
CHEST PAIN PATIENT AWOKE, USED CALL LIGHT TO NOTIFY RN OF 8/10 CHEST PAIN RADIATING TO JAW, TEETH AND DOWN LEFT ARM. NITRO RESTARTED AT 5MCG/MIN AND TITRATED UP TO 20MCG/MIN UNTIL PATIENT FELT RELIEF. PATIENT'S HEART RATE IN THE 120-130'S METOPROLOL IV GIVEN, HEART RATE IN THE 90'S TO LOW 100'S AT THIS TIME. B/P STABLE. WILL TITRATE DOWN NITRO CHEST PAIN ALLOWS. PAIN NOW AT A 2/10 IN CHEST. WILL MONITOR.
--- NOTE | 2020-07-16 06:03 | NUR ---
SHIFT SUMMARY PATIENT STARTED SHIFT ON 10MCG OF NITRO AND 14 U/KG OF HEPARIN. TITRATED HEPARIN PER PTT. PATIENT USING URINAL INDEPENDENTLY. RESTED THROUGH NIGHT WITH CPAP, STABLE VITALS. AWOKE PREVIOUSLY CHARTED WITH 8/10 CP, TITRATE NITRO UP, CP NOW RESOLVED. NITRO CURRENTLY ON 20MCG. PTT DRAWN THIS AM, AWAITING RESULTS. PATIENT ANTICIPATING HEAT TREATING OPERATOR. PO PREDNISONE GIVEN WITH NO DIFFICULTIES. WILL CONTINUE TO MONITOR AND REPORT TO ONCOMING RN.
--- NOTE | 2020-07-16 09:37 | NUR ---
CARE OF PT ASSUMED AT 0700. PT RESTING IN BED AWAKE. HEPARIN GTT AT 15UNITS, NITRO GTT AT 20MCG. PT INITIALLY DENIED CHEST PAIN. PT OOB TO TOILET HE HAD DONE YESTERDAY W/O COMPLICATION. PT C/O CHEST PAIN/PRESSURE 3/10 AFTER TOLIETING, PAIN INITIALLY IMPROVED W REST TO A 1-2/10, THEN INCREASED TO A 3 AGAIN. PT VERY ANXIOUS OVERALL. NITRO GTT INCREASED TO 25MCG FOR CHEST PAIN CONTROL. PT KEPT NPO EXCEPT FOR MEDS. PT TO LINING MAKER HAND AT 0845; PT'S NOTIIFED PER PT REQUEST.
--- NOTE | 2020-07-16 12:17 | NUR ---
PT RETURNED FROM DETAIL TECHNICIAN AT 1130. DR RUIZ AT BEDSIDE. PT HAD 4 STENTS PLACED, 2 LAD, 2 RCA. PERCLOSE TO RIGHT GROIN W FEM STOP IN PLACE, PRESSURE 160MMHG. DR RUIZ HAS WRITTEN OUT A SCHEDULE FROM REMOVING AIR FROM FEMSTOP. SMALL AMT OF BRUISING NOTED UNDER FEMSTOP, AREA SOFT, 1+ PEDAL PULSES TO DP/PT BILAT. TR BAND TO RIGHT RADIAL W 13CC AIR PLACED AT 1118, SLIGHT BRUISING UNDER TR BAND, HAND WARM, PINK, W GOOD CAP REFILL, PT DENIES ANY PAIN, TINGLING, OR NUMBNESS TO RIGHT HAND. PT DENIES C/O CHEST PAIN, SOB. LUNGS ARE CLEAR, VSS, PT IN A FLUTTER. PT RETURNED ON HEPARIN GTT AND IS TO REMAIN ON HEPARIN GTT PER DR RUIZ. HEPARIN GTT AT 15UNITS. NITRO GTT OFF. RIGHT GROIN AND TR BAND CHECKED Q 15MIN, WILL CONT TO DO SO, NO CHANGES OF YET. FEMSTOP PRESSURE IS DOWN TO 80MMHG ORDERED. PT HAS BIPAP MASK ON AND IS RESTING NOW W AT BEDSIDE.
--- NOTE | 2020-07-16 13:33 | NUR ---
ADMIT:07/13/20 DISCHARGE: DX: CAD with unstable Angina CC: BENITO CALL: RESIDENCE: home with spouse CAREGIVER: Sadie Wilson, Spouse / Partner, [phone] DX: Afib, Hyperlipdemia, HTN, SHAREE, see list DME: none CCM: none HOME HEALTH: none SUMMARY: Admit: 07/13/20 07/16/20- per chart review with Dr. Martin, pt is scheduled to have heart cath today for NSTEMI. No plan for d/c at this time. -lorie
--- NOTE | 2020-07-16 14:20 | NUR ---
AIR REMOVED FROM TR BAND OVER 30MIN. NO BLEEDING, HEMOTOMA TO AREA. BAND TO REMAIN ON UNTIL 1430. WRIST IMMOBILIZER ON. PRESSURE TO FEM STOP AT [address] RUIZ'S ORDERS. FEM STOP TO BE REMOVED AT 1630. GROIN REMAINS STABLE. NO OTHER CHANGES FROM PREVIOUS ASSESSMENT.
--- NOTE | 2020-07-16 15:35 | NUR ---
CRITICAL HIGH PTT. HEPARIN GTT PLACED ON HOLD PER PHARMACY. DR RUIZ AT BEDSIDE. PT REMAINS STABLE. PT TO REMAIN FLAT X2 HRS AFTER REMOVING FEMSTOP AT 1630. TR BAND REMOVED, OPSITE PLACED, WRIST IMMOBILZER REMAINS ON.
--- NOTE | 2020-07-16 16:31 | NUR ---
FEM STOP REMOVED, AREA BRUISED BUT SOFT. FEN STOP REMAINS UNDER PT FOR NOW. PT TO REMAIN FOR TWO ADDITIONAL HOURS PER DR RUIZ. R WIRST REMAINS STABLE, AREA SOFT W/O HEMATOMA. SMALL DOT OF BLOOD OVER INSERTION SITE.
--- NOTE | 2020-07-16 16:52 | NUR ---
DR LAEN Quintanilla CARDIOLOGY IN TO SEE PT. GROIN REMAINS STABLE. HEPARIN RESUMED AT 14.5UNITS PER PHARMACY. RIGHT RADIAL SITE REMAINS STABLE.
--- NOTE | 2020-07-16 18:32 | NUR ---
HOB RAISED TO 30 DEGREES. R GROIN AND R RADIAL SITE REMAIN STABLE.
--- NOTE | 2020-07-16 19:32 | NUR ---
R GROIN, R RADIAL SITE, AND HEP GTT RVIEWED W STEPHANY RN. R GROIN STABLE. R RADIAL SITE HAS SM AMT OF OOZING UNDER DRSG BUT AREA REMAINS SOFT.
--- NOTE | 2020-07-16 21:25 | NUR ---
ASSUMED CARE PT ALERT AND ORIENTED. VITALS STABLE. R RADIAL SITE SCANT AMOUNT OF BLOOD UNDER DRESSING, NO DISCOLORATION OR TENDERNESS. WRIST IN ARM BOARD. R GROIN SITE, SCANT AMOUNT OF BLOOD UNDER DRESSING, NO DISCOLORATION OR HEMATOMA. PT PLEASENT AND COOPERATIVE WITH CARE.
--- NOTE | 2020-07-17 05:40 | NUR ---
SHIFT SUMMARY PT WAS ALERT, ORIENTED, AND COOPERATIVE WITH CARE. ANGIO SITES UNCHANGED T/O THE SHIFT. R WRIST HAS SCANT BLOOD, NO TENDERNESS, DISCOLORATION, OR HEMATOMA. DISTAL PERFUSION, SKIN PWD, CAP REFILL <3 SEC. R GROIN SITE SCANT BLOOD, NO DISCOLORATION, HEMATOMA, OR TENDERNESS. DISTAL PERFUSION SHOWED SKIN PWD, AND CAP REFILL <3 SEC. VITALS STABLE WITH BP 130'S/50-60'S. HR 100'S WHEN AWAKE AND MOVING AROUND, 60-70'S WHEN RESTING, MONITOR SHOWING A-FLUTTER WITH 2:1. PT DENIED ANY CHEST PAIN OR PAIN. ON ROOM AIR WITH SATS >90%, CPAP WHEN SLEEPING. PT STARTED ON WARFARIN. PT HAD A QUIET UNEVENTFUL NIGHT.
--- NOTE | 2020-07-17 07:21 | NUR ---
ASSUMED CARE: PT AWAKE AND SITTING UP IN BED WATCHING MOVIES ON COMPUTER. DENIES CHEST PAIN. AFLUTTER ON TELE IN 60S. RIGHT ARM SITE WITH MINIMAL BLEEDING OVERNIGHT, NO SWELLING NOTED AT THIS TIME. GROIN SITE WITH NO NEW SWELLING OR BLEEDING NOTED. CARDIOLOGY HERE TO SEE PT AND STATES PT CAN BE DC'D WHEN INR BETWEEN 2-3 OR PCU STATUS PER HOSPITALIST. DENIES NEEDS OR CONCERNS AT THIS TIME.
[2020-07-17 08:07] LABS: BASOPHILS ABSOLUTE AUTO 0.02 K/mm3 (0.00-0.23); BASOPHILS PERCENT AUTO 0 % (0-2); EOSINOPHILS ABSOLUTE AUTO 0.01 K/mm3 (0.00-0.68); EOSINOPHILS PERCENT AUTO 0 % (0-6); Hematocrit 46.3 % (37.0-53.0); Hemoglobin 15.2 g/dL (13.5-17.5); IMMATURE GRAN ABSOLUTE AUTO 0.05 K/mm3 (0.00-0.10); IMMATURE GRAN PERCENT AUTO 1 % (0-1); LYMPHOCYTES ABSOLUTE AUTO 1.11 K/mm3 (0.84-5.20); LYMPHOCYTES PERCENT AUTO 11 % (21-46); MONOCYTES ABSOLUTE AUTO 0.72 K/mm3 (0.16-1.47); MONOCYTES PERCENT AUTO 7 % (4-13); Mean Corpuscular HGB 29.1 pg (26.0-34.0); Mean Corpuscular HGB Conc 32.8 g/dL (31.5-36.5); Mean Corpuscular Volume 89 fL (80-100); Mean Platelet Volume 10.6 fL (9.1-12.4); NEUTROPHILS ABSOLUTE AUTO 8.62 K/mm3 (1.96-9.15); NEUTROPHILS PERCENT AUTO 82 % (41-73); Platelet Count 263 K/mm3 (150-400); RDW Coefficient Variation 13.2 % (11.7-14.2); RDW Standard Deviation 42.8 fL (35.1-46.3); Red Blood Cell Count 5.23 M/mm3 (4.30-5.90); White Blood Cell Count 10.53 K/mm3 (4.00-11.30)
[2020-07-17 08:20] LABS: Anion Gap 3 mmol/L (6-16); Blood Urea Nitrogen 21 mg/dL (8-24); Bun/Creatinine Ratio 22.9 (12.0-20.0); CO2, Blood 28 mmol/L (21-32); Calcium, Blood 8.4 mg/dL (8.5-10.1); Chloride, Blood 108 mmol/L (98-108); Creatinine, Blood 0.92 mg/dL (0.60-1.20); Glomerular Filtration Rate >60 (60-); Glucose, Blood 105 mg/dL (70-99); Potassium, Blood 3.8 mmol/L (3.5-5.5); Sodium, Blood 139 mmol/L (136-145)
[2020-07-17 08:23] LABS: International Normalized Ratio 1.35; Prothrombin Time Results 14.3 Sec (9.7-11.5)
--- NOTE | 2020-07-17 09:37 | NUR ---
CONVERSATION WITH PATIENT PATIENT HAD CONCERNS ABOUT MEDICATION THAT WAS PRESCRIBED TO HIM POST PROCEDURE BY DR. RUIZ. PATIENT CONCERNED ABOUT INCREASED BLEEDING RISK DUE TO TAKING ASPIRIN, PLAVIX AND COUMADIN AT THE SAME TIME. PATIENT EDUCATED BY PRIMARY RN ON REASONING FOR THESE MEDICATIONS WELL HIS RIGHT TO REFUSE THE MEDICATION. PATIENT PLACED CALL TO HIS WATERPROOF MATERIAL FOLDER OFFICE DEMANDING FOR DR. MILLER TO SEE THE PATIENT IN ICU SHE IS DELIVERY AND MAIL SORTER REGARDING THE CONCERN OF THE PRESCRIBED MEDICATIONS. WATERPROOF MATERIAL FOLDER OFFICE ENSURED THEY WOULD PLACE A CALL TO DR. MILLER
--- NOTE | 2020-07-17 12:55 | NUR ---
PT SEES DR MILLER OUTPT AND TRUSTS HER OPINION AND REQUESTED THAT WE CONTACT HER REGARDING HIS ANTICOAGULATION REGIMEN. DR MILLER STATES SHE WILL TRY TO SEE HIM THIS AFTERNOON AND IF NOT THEN TOMORROW MORNING. PT AWARE AND AGREEABLE TO THIS
--- NOTE | 2020-07-17 16:40 | NUR ---
07/17/20- PER CHART REVIEW, PT COULD POTENTIALLY DISCHARGE EITHER . OR WEDNESDAY. CARDIOLOGY IS MONITORING PT SINCE HE HAS HAD A HEART CATH. -TYRESE
--- NOTE | 2020-07-17 16:54 | NUR ---
HEPARIN DOSE CHANGED PER PHARMACY AND VERIFIED WITH MARILY CORADO
--- NOTE | 2020-07-17 17:47 | NUR ---
SHIFT SUMMARY POST ANGIOGRAM AND STENT PLACEMENT DAY 1. STENTS PLACED IN LAD AND RCA. RIGHT WRIST SITE HAS TEGADERM IN PLACE WITH MINIMAL BLEEDING UNDER DRESSING. RIGHT FEMORAL SITE HAS TEGADERM IN PLACE WITH MINIMAL BLEEDING. DENIES CHEST PAIN OR SHORTNESS OF BREATH THROUGH SHIFT. BP HAS BEEN STABLE. HR HAS BEEN ELEVATED TOWARDS END OF SHIFT. CALL PLACED TO STRUCTURAL ENGINEERING TECHNICIAN BY PRIMARY RN. EMAR UPDATED. PATIENT REMAINED ALERT AND ORIENTED THROUGHOUT SHIFT.
--- NOTE | 2020-07-18 04:54 | NUR ---
SHIFT SUMMARY PT WAS ALERT, ORIENTED, AND COOPERATIVE WITH CARE. R RADIAL SITE HAD NO CHANGE FROM PREVIOUS NOC SHIFT AND NO CHANGE T/O THE NIGHT. R GROIN SITE SHOWED SOME BRUISING ALONG SKIN FOLD THAT WAS UNCHANGED T/O THE SHIFT. PT DENIED ANY TENDERNESS AT EITHER SITE. HR WAS ELEVATED AT START OF SHIFT WHEN PT WAS AWAKE WITH HR AVG 110-120'S. HR DROPPED TO 60'S THEN PT WAS SLEEPING WITH MONITOR SHOWING AFLUTTER WITH 3:1 CONDUCITON. BP 130-140'S SYSTOLIC. PT DEINED ANY CHEST PAIN. PT HAD A QUIET UNEVENTFUL NIGHT WITH REST.
[2020-07-18 08:12] LABS: International Normalized Ratio 1.55; Prothrombin Time Results 16.3 Sec (9.7-11.5)
--- NOTE | 2020-07-18 14:15 | NUR ---
07/18/20- PER CHART REVIEW, PT WOKE THIS MORNING WITH NECK AND L-SHOULDER PAIN BUT IT WAS NOT THE SAME PAIN BEFORE. TELEMETRY SHOWED AFLUTTER. MEDICATIONS WERE CHANGED AND PT TOLERATING THIS. PT IS STABLE ENOUGH TO MOVE FROM ICU TO MEDICAL FLOOR. PT COULD POTENTIALLY BE DISCHARGED TOMORROW. -TYRESE
--- NOTE | 2020-07-18 16:47 | NUR ---
TRANSFER PT TRANSFERRED TO 324 VIA WC WITH RN. REPORT GIVEN TO MICKIE BAER. PT'S WITH PT AT TIME OF TRANSFER. ALL BELONGINGS TRANSFERRED WITH PT.
--- NOTE | 2020-07-18 18:57 | NUR ---
transfered from icu, multiple sents, neither wrist nor groin site show any s/sx of infection, groin area has bruising, denies cp, sitting up working on computer, medicated as prescribed, heparin infusing with no s/sx of infection or infiltration, rm air, call light in reach, tele reports sin at 70bpm, bsr shared with noc nurse and tyler
--- NOTE | 2020-07-19 04:21 | NUR ---
SUMMARY PT HAD NO NEW ISSUES NOTED. PT DENIES CX PAIN OR SOB. PT HAS SLEPT T/O SHIFT. PT CURRENTLY SLEEPING IN NO DISTRESS. CALL LIGHT IN REACH.
[2020-07-19 06:04] LABS: International Normalized Ratio 1.96; Prothrombin Time Results 20.4 Sec (9.7-11.5)
--- NOTE | 2020-07-19 13:32 | NUR ---
07/19/20- pt stable for d/c. Met with pt and discussed BENITO. Pt will be going back home and his will be coming to get him and taking him home. She will be able to help with any of his care needs. Pharmacy is [facility]. He has no needs for DME and no concerns about going home. Pt acknowledged understanding of BENITO and that he will need to follow up in 1 week with PCP and have follow up with cardiology also. -lorie
[2020-07-19] MEDS ORDERED: CLOP75 PO (14:22)
[2020-07-19] MEDS ORDERED: ATOR80 (14:22)
[2020-07-19] MEDS ORDERED: DIGOX125 MC1 PO (14:23)
[2020-07-19] MEDS ORDERED: FAMO20 PO (14:23)
[2020-07-19] MEDS ORDERED: METO50ER PO (14:24)
--- NOTE | 2020-07-19 19:49 | NUR ---
REVIEWED PT'S INFORMATION RE CALL FROM PT AND PT'S DAUGHTER ABOUT PT'S DISCHARGE MEDS
--- NOTE | 2020-07-19 19:56 | NUR ---
discharged: escorted pt in wc to family vehicle, assisted pt into front seat and handed him the seatbelt, pt thanked for care and drove off, REMOVED IV and tele which was sent back to [facility], reviewed care, discharge instruction and medications.
== END 2020-07-19 15:48 | disposition home or self-care (01) | DRG 246 ==
LOC: ER 09:28 → ICUE 11:44 → ICUW 11:44 → ICUE 13:20 → MEDS 07-18 16:36 → ENPENDDIS 07-19 14:25 → MEDS 07-19 15:48
PROVIDERS: Emergency Medicine; Internal Medicine; Internal Medicine Cardiovascular Disease; Pharmacist; ADMIT Internal Medicine Gastroenterology
PROC: 027137Z Dilation of Coronary Artery, Two Arteries with Four or More Drug-eluting Intraluminal Devices, Percutaneous Approach (ICD-10-PCS; principal; 2020-07-16)
PROC: B2111ZZ Fluoroscopy of Multiple Coronary Arteries using Low Osmolar Contrast (ICD-10-PCS; 2020-07-16)
DX: I21.4 Non-ST elevation (NSTEMI) myocardial infarction (principal); D68.61 Antiphospholipid syndrome; I50.22 Chronic systolic (congestive) heart failure; I42.9 Cardiomyopathy, unspecified; Z88.0 Allergy status to penicillin; Z88.2 Allergy status to sulfonamides; I25.110 Atherosclerotic heart disease of native coronary artery with unstable angina pectoris; Z88.8 Allergy status to other drugs, medicaments and biological substances; Z91.041 Radiographic dye allergy status; E11.9 Type 2 diabetes mellitus without complications; I48.0 Paroxysmal atrial fibrillation; Z86.73 Personal history of transient ischemic attack (TIA), and cerebral infarction without residual deficits; Z79.899 Other long term (current) drug therapy; Z79.02 Long term (current) use of antithrombotics/antiplatelets; Z98.890 Other specified postprocedural states; Z90.49 Acquired absence of other specified parts of digestive tract; Z87.891 Personal history of nicotine dependence; Z85.46 Personal history of malignant neoplasm of prostate; I08.0 Rheumatic disorders of both mitral and aortic valves; F41.9 Anxiety disorder, unspecified
CPT/HCPCS: 36415; 71045; 76937; 80048; 80053; 80069; 83735; 83880; 84484; 85025; 85347; 85610; 85730; 93005; 93010; 93306; 93454; 99152; 99153; 99285-25; A9270; C1725; C1760; C1769; C1874; C1887; C1894; C9600; J1160; J1644; J2250; J3010; J7030; J7040; J7050; J7512; Q9967; U0004

== ENCOUNTER 2020-10-16 08:28 | Inpatient (IN) | payer MEDICARE, OTHER ==
[~2020-10-16] VITALS: Ht 193 cm; Wt 136.1 kg
[~2020-10-16 08:28] MED LIST changes: +ATOR80; +CLOP75 PO; +DIGOX125 MC1 PO; +FAMO20 PO; +METO50ER PO; +THERA-D2000 UNIT PO
[2020-10-16 08:56] LABS: BASOPHILS ABSOLUTE AUTO 0.04 K/mm3 (0.00-0.23); BASOPHILS PERCENT AUTO 1 % (0-2); EOSINOPHILS ABSOLUTE AUTO 0.17 K/mm3 (0.00-0.68); EOSINOPHILS PERCENT AUTO 2 % (0-6); Hematocrit 48.2 % (37.0-53.0); Hemoglobin 15.6 g/dL (13.5-17.5); IMMATURE GRAN ABSOLUTE AUTO 0.05 K/mm3 (0.00-0.10); IMMATURE GRAN PERCENT AUTO 1 % (0-1); LYMPHOCYTES ABSOLUTE AUTO 0.78 K/mm3 (0.84-5.20); LYMPHOCYTES PERCENT AUTO 10 % (21-46); MONOCYTES ABSOLUTE AUTO 1.01 K/mm3 (0.16-1.47); MONOCYTES PERCENT AUTO 13 % (4-13); Mean Corpuscular HGB 28.2 pg (26.0-34.0); Mean Corpuscular HGB Conc 32.4 g/dL (31.5-36.5); Mean Corpuscular Volume 87 fL (80-100); NEUTROPHILS ABSOLUTE AUTO 5.96 K/mm3 (1.96-9.15); NEUTROPHILS PERCENT AUTO 75 % (41-73); Platelet Count 210 K/mm3 (150-400); RDW Coefficient Variation 13.7 % (11.7-14.2); RDW Standard Deviation 43.5 fL (35.1-46.3); Red Blood Cell Count 5.53 M/mm3 (4.30-5.90); White Blood Cell Count 8.01 K/mm3 (4.00-11.30)
[2020-10-16 09:07] LABS: International Normalized Ratio 2.4; Prothrombin Time Results 24.7 Sec (9.7-11.5)
[2020-10-16 09:13] LABS: Alanine Aminotransfer (ALT/SGP 29 U/L (12-78); Albumin, Blood 3.4 g/dL (3.4-5.0); Alk Phos 58 U/L (50-136); Anion Gap 3 mmol/L (6-16); Aspartate Aminotrans (AST/SGOT 20 U/L (12-37); Bilirubin, Total 0.7 mg/dL (0.1-1.0); Blood Urea Nitrogen 14 mg/dL (8-24); Bun/Creatinine Ratio 17.7 (12.0-20.0); CO2, Blood 29 mmol/L (21-32); Calcium, Blood 8.7 mg/dL (8.5-10.1); Chloride, Blood 108 mmol/L (98-108); Creatinine, Blood 0.79 mg/dL (0.60-1.20); Globulin, Blood 3.5 g/dL (2.2-4.0); Glomerular Filtration Rate >60 (60-); Glucose, Blood 101 mg/dL (70-99); Potassium, Blood 3.8 mmol/L (3.5-5.5); Sodium, Blood 140 mmol/L (136-145); Total Protein, Blood 6.9 g/dL (6.4-8.2)
[2020-10-16 11:36] LABS: Digoxin (Lanoxin) 0.11 ug/mL (0.80-2.00)
[2020-10-16] MEDS ORDERED: EZETIMIBE10 M6 PO (11:46)
[2020-10-16] MEDS ORDERED: METOPROLOL SUCC25 MG PO (11:47)
[2020-10-16] MEDS ORDERED: Deltasone 10 mg10 MG PO (11:47)
[2020-10-16] MEDS ORDERED: PRED1 PO (11:48)
[2020-10-16] MEDS ORDERED: LIVALO1 MG PO (11:48)
--- NOTE | 2020-10-16 15:44 | NUR ---
PATIENT'S HR DROPPED BETWEEN LOW 40'S AND HIGH 50'S ON ARRIVAL TO THE UNIT FROM ER. DILTIAZM WAS STOPPED. WILL CONTINUE TO MONITOR HR.
--- NOTE | 2020-10-16 16:06 | NUR ---
PATIENT ARRIVED ONTO UNIT AT 1530 TODAY 10/16/20 FROM ER. PATIENT IS ALERT AND ORIENTED X4. PATIENTS BP IS HIGH BUT OTHERWISE HAS WNL VITALS. PATIENT DENIES PAIN AT THIS TIME. HE CAME BACK TO THE UNIT FROM ER WITH A DILTIZAM DRIP, BUT WAS TAKEN OFF SINCE HIS HEART RATE WAS IN THE HIGH 40'S TO LOW 50'S. PATIENT IS VOIDING AND TOLERATING PO INTAKE. CALL LIGHT WITHIN REACH. TELE IS ON THE PATIENT. PATIENT IS CURRENTLY TALKING WITH ON THE PHONE.
[2020-10-17 04:16] LABS: BASOPHILS ABSOLUTE AUTO 0.05 K/mm3 (0.00-0.23); BASOPHILS PERCENT AUTO 1 % (0-2); EOSINOPHILS ABSOLUTE AUTO 0.19 K/mm3 (0.00-0.68); EOSINOPHILS PERCENT AUTO 4 % (0-6); Hematocrit 47.4 % (37.0-53.0); Hemoglobin 15.2 g/dL (13.5-17.5); IMMATURE GRAN ABSOLUTE AUTO 0.03 K/mm3 (0.00-0.10); IMMATURE GRAN PERCENT AUTO 1 % (0-1); LYMPHOCYTES ABSOLUTE AUTO 0.73 K/mm3 (0.84-5.20); LYMPHOCYTES PERCENT AUTO 13 % (21-46); MONOCYTES ABSOLUTE AUTO 0.73 K/mm3 (0.16-1.47); MONOCYTES PERCENT AUTO 13 % (4-13); Mean Corpuscular HGB 28.1 pg (26.0-34.0); Mean Corpuscular HGB Conc 32.1 g/dL (31.5-36.5); Mean Corpuscular Volume 88 fL (80-100); Mean Platelet Volume 10.3 fL (9.1-12.4); NEUTROPHILS ABSOLUTE AUTO 3.74 K/mm3 (1.96-9.15); NEUTROPHILS PERCENT AUTO 69 % (41-73); Platelet Count 205 K/mm3 (150-400); RDW Coefficient Variation 13.8 % (11.7-14.2); RDW Standard Deviation 44.1 fL (35.1-46.3); White Blood Cell Count 5.47 K/mm3 (4.00-11.30)
[2020-10-17 04:34] LABS: International Normalized Ratio 2.73; Prothrombin Time Results 27.9 Sec (9.7-11.5)
[2020-10-17 04:45] LABS: Anion Gap 5 mmol/L (6-16); Blood Urea Nitrogen 13 mg/dL (8-24); Bun/Creatinine Ratio 14.9 (12.0-20.0); CO2, Blood 26 mmol/L (21-32); Calcium, Blood 8.6 mg/dL (8.5-10.1); Chloride, Blood 109 mmol/L (98-108); Creatinine, Blood 0.87 mg/dL (0.60-1.20); Glomerular Filtration Rate >60 (60-); Glucose, Blood 99 mg/dL (70-99); Potassium, Blood 3.6 mmol/L (3.5-5.5); Sodium, Blood 140 mmol/L (136-145); Troponin I 0.043 ng/mL (0.000-0.040)
--- NOTE | 2020-10-17 04:55 | NUR ---
BOX ATTACHER SUMMARY PT REPORTED 1/10 CHEST PAIN AT THE START OF THE SHIFT WHICH IS UNCHANGED FROM DAYSHIFT. BP WNL AND STABLE THIS SHIFT. PT HAS MAINTAINED O2 SATS >92% ON RM AIR AND ON BIPAP WHILE ASLEEP. TELE HAS SHOWN AFIB 60-80 THIS SHIFT. WILL REPORT TO ONCOMING RN.
--- NOTE | 2020-10-17 07:47 | NUR ---
pt laying in bed watching tv, a/ox3, pleasant and cooperative with care, follows commands well, denies pain, lungs are clear t/o, on r/a, uses bipap at night, no cough noted, hrirr, tele in place running afib per monitor in the 90's, no edema noted, ppp+2, cap refill<3sec, vs stable, afebrile, iv site is clear and patent, bt x4, abd round soft nontender, voids without diff, skin c/w/d, maew, lindsey, call light in reach.
[2020-10-17] MEDS ORDERED: PRED5 PO (12:05)
[2020-10-17] MEDS ORDERED: METO25 PO (12:05)
--- NOTE | 2020-10-17 13:45 | NUR ---
PT HAS BEEN DISCHARGED TO HOME, WENT OVER INSTRUCTIONS HE VERBALIZED UNDERSTANDING, IV REMOVED INTACT, PT HAS ALL BELONGINGS, NEW MEDICATION CALLED INTO HIS PHARMACY, LEFT VIA WHEELCHAIR WITH AND DOMESTIC HOUSEKEEPER IN ATTENDENCE.
== END 2020-10-17 13:45 | disposition home or self-care (01) | DRG 309 ==
LOC: ER 08:28 → PCU 15:24
PROVIDERS: Internal Medicine; Physician Assistant; ADMIT Internal Medicine
DX: I48.0 Paroxysmal atrial fibrillation (principal); G72.0 Drug-induced myopathy; I50.22 Chronic systolic (congestive) heart failure; I24.8 Other forms of acute ischemic heart disease; D68.61 Antiphospholipid syndrome; E11.9 Type 2 diabetes mellitus without complications; I16.0 Hypertensive urgency; I11.0 Hypertensive heart disease with heart failure; E78.5 Hyperlipidemia, unspecified; I25.10 Atherosclerotic heart disease of native coronary artery without angina pectoris; I25.5 Ischemic cardiomyopathy; M19.90 Unspecified osteoarthritis, unspecified site; T46.6X5A Adverse effect of antihyperlipidemic and antiarteriosclerotic drugs, initial encounter; I49.5 Sick sinus syndrome; I08.0 Rheumatic disorders of both mitral and aortic valves; G47.33 Obstructive sleep apnea (adult) (pediatric); Z86.73 Personal history of transient ischemic attack (TIA), and cerebral infarction without residual deficits; Z85.46 Personal history of malignant neoplasm of prostate; Z95.5 Presence of coronary angioplasty implant and graft; Z90.49 Acquired absence of other specified parts of digestive tract; Z98.890 Other specified postprocedural states; Z88.0 Allergy status to penicillin; Z88.2 Allergy status to sulfonamides; Z88.8 Allergy status to other drugs, medicaments and biological substances; Z91.041 Radiographic dye allergy status; Z79.01 Long term (current) use of anticoagulants; Z79.02 Long term (current) use of antithrombotics/antiplatelets; Z79.899 Other long term (current) drug therapy; Z87.891 Personal history of nicotine dependence; Z79.52 Long term (current) use of systemic steroids; Z98.52 Vasectomy status
CPT/HCPCS: 36415; 71045; 80048; 80053; 80162; 83735; 83880; 84100; 84484; 85025; 85610; 85730; 93005; 93010; 94660; 96374; 96376; 99285-25; A9270; J0153; J7030; J7512

== ENCOUNTER 2021-11-21 10:59 | Emergency (ER) | payer MEDICARE, OTHER ==
[~2021-11-21] VITALS: Ht 195.6 cm; Wt 136.1 kg
[~2021-11-21 10:59] MED LIST changes: +Deltasone 10 mg10 MG PO; +EZETIMIBE10 M6 PO; +LIVALO1 MG PO; +METO25 PO; +METOPROLOL SUCC25 MG PO; +PRED1 PO
[2021-11-21 12:12] LABS: BASOPHILS ABSOLUTE AUTO 0.05 K/mm3 (0.00-0.23); BASOPHILS PERCENT AUTO 1 % (0-2); EOSINOPHILS PERCENT AUTO 1 % (0-6); Hematocrit 50.1 % (37.0-53.0); Hemoglobin 16.1 g/dL (13.5-17.5); IMMATURE GRAN ABSOLUTE AUTO 0.04 K/mm3 (0.00-0.10); IMMATURE GRAN PERCENT AUTO 0 % (0-1); LYMPHOCYTES ABSOLUTE AUTO 0.92 K/mm3 (0.84-5.20); LYMPHOCYTES PERCENT AUTO 10 % (21-46); MONOCYTES ABSOLUTE AUTO 0.81 K/mm3 (0.16-1.47); MONOCYTES PERCENT AUTO 9 % (4-13); Mean Corpuscular HGB 28.4 pg (26.0-34.0); Mean Corpuscular HGB Conc 32.1 g/dL (31.5-36.5); Mean Corpuscular Volume 89 fL (80-100); Mean Platelet Volume 10.4 fL (9.1-12.4); NEUTROPHILS ABSOLUTE AUTO 7.43 K/mm3 (1.96-9.15); NEUTROPHILS PERCENT AUTO 80 % (41-73); Platelet Count 258 K/mm3 (150-400); RDW Coefficient Variation 13.5 % (11.7-14.2); RDW Standard Deviation 43.8 fL (35.1-46.3); Red Blood Cell Count 5.66 M/mm3 (4.30-5.90); White Blood Cell Count 9.35 K/mm3 (4.00-11.30)
[2021-11-21 12:29] LABS: Albumin, Blood 3.5 g/dL (3.4-5.0); Bilirubin, Total 0.6 mg/dL (0.1-1.0); Bun/Creatinine Ratio 18.3 (12.0-20.0); Calcium, Blood 9.1 mg/dL (8.5-10.1); Creatinine, Blood 0.87 mg/dL (0.60-1.20); Globulin, Blood 3.5 g/dL (2.2-4.0)
[2021-11-21 14:40] LABS: International Normalized Ratio 2.43; Prothrombin Time Results 24.1 Sec (9.7-11.5)
== END 2021-11-21 16:35 | disposition home or self-care (01) ==
LOC: ER 10:59
PROVIDERS: Emergency Medicine; Student in an Organized Health Care Education/Training Program
DX: I48.91 Unspecified atrial fibrillation (principal); E11.9 Type 2 diabetes mellitus without complications; Z88.2 Allergy status to sulfonamides; Z88.8 Allergy status to other drugs, medicaments and biological substances; Z91.048 Other nonmedicinal substance allergy status; Z79.01 Long term (current) use of anticoagulants; Z79.52 Long term (current) use of systemic steroids; Z79.899 Other long term (current) drug therapy; Z86.73 Personal history of transient ischemic attack (TIA), and cerebral infarction without residual deficits; Z87.891 Personal history of nicotine dependence
CPT/HCPCS: 36415; 71045; 80053; 84484; 85025; 85610; 85730; 93005; 93010; J2704; J3010; J7030

== ENCOUNTER 2022-05-20 17:08 | Emergency (ER) | payer MEDICARE, OTHER ==
[~2022-05-20] VITALS: Ht 195.6 cm; Wt 129.3 kg
[2022-05-20 18:42] LABS: BASOPHILS ABSOLUTE AUTO 0.04 K/mm3 (0.00-0.23); BASOPHILS PERCENT AUTO 0 % (0-2); EOSINOPHILS ABSOLUTE AUTO 0.13 K/mm3 (0.00-0.68); EOSINOPHILS PERCENT AUTO 1 % (0-6); Hematocrit 44.9 % (37.0-53.0); Hemoglobin 14.7 g/dL (13.5-17.5); IMMATURE GRAN ABSOLUTE AUTO 0.04 K/mm3 (0.00-0.10); IMMATURE GRAN PERCENT AUTO 0 % (0-1); LYMPHOCYTES ABSOLUTE AUTO 0.84 K/mm3 (0.84-5.20); LYMPHOCYTES PERCENT AUTO 9 % (21-46); MONOCYTES PERCENT AUTO 10 % (4-13); Mean Corpuscular HGB 28.7 pg (26.0-34.0); Mean Corpuscular HGB Conc 32.7 g/dL (31.5-36.5); Mean Corpuscular Volume 88 fL (80-100); Mean Platelet Volume 10.8 fL (9.1-12.4); NEUTROPHILS ABSOLUTE AUTO 7.23 K/mm3 (1.96-9.15); NEUTROPHILS PERCENT AUTO 79 % (41-73); Platelet Count 254 K/mm3 (150-400); RDW Coefficient Variation 14.1 % (11.7-14.2); RDW Standard Deviation 44.7 fL (35.1-46.3); Red Blood Cell Count 5.12 M/mm3 (4.30-5.90); White Blood Cell Count 9.18 K/mm3 (4.00-11.30)
[2022-05-20 19:00] LABS: Albumin, Blood 3.5 g/dL (3.4-5.0); Bilirubin, Total 0.7 mg/dL (0.1-1.0); Bun/Creatinine Ratio 17.9 (12.0-20.0); Calcium, Blood 8.9 mg/dL (8.5-10.1); Creatinine, Blood 0.95 mg/dL (0.60-1.20); Globulin, Blood 3.4 g/dL (2.2-4.0); Potassium, Blood 4.4 mmol/L (3.5-5.5); Total Protein, Blood 6.9 g/dL (6.4-8.2)
[2022-05-20 22:42] LABS: Magnesium, Blood 2.3 mg/dL (1.6-2.4)
[2022-05-20 22:44] LABS: Thyroid Stimulating Hormone 0.405 uIU/mL (0.360-4.800)
[2022-05-20 23:13] LABS: International Normalized Ratio 2.28; Prothrombin Time Results 22.7 Sec (9.7-11.5)
== END 2022-05-21 03:00 | disposition home or self-care (01) ==
LOC: ER 17:08
PROVIDERS: Physician Assistant; Student in an Organized Health Care Education/Training Program
DX: I48.92 Unspecified atrial flutter (principal); R06.02 Shortness of breath; R00.2 Palpitations; Z88.8 Allergy status to other drugs, medicaments and biological substances; Z88.2 Allergy status to sulfonamides; Z88.0 Allergy status to penicillin; Z79.899 Other long term (current) drug therapy; Z79.01 Long term (current) use of anticoagulants; E11.9 Type 2 diabetes mellitus without complications; I48.91 Unspecified atrial fibrillation; G47.30 Sleep apnea, unspecified; I25.10 Atherosclerotic heart disease of native coronary artery without angina pectoris; Z87.891 Personal history of nicotine dependence
CPT/HCPCS: 36415; 71046; 80053; 83735; 83880; 84443; 84484; 85025; 85610; 92960; 99152; 99285-25; J2704; J3010; J7030

== ENCOUNTER → 2024-12-21 | Outpatient (CLI) | payer MEDICARE, OTHER ==
[2024-12-22 19:12] LABS: Campylobacter Sp Not Detected (NOT DETECT); E. Coli O157 Not Detected (NOT DETECT); Enteroaggregative E. coli-EAEC Not Detected (NOT DETECT); Enteropathogenic E. coli-EPEC Not Detected (NOT DETECT); Enterotoxigenic E. coli-ETEC Not Detected (NOT DETECT); Salmonella Sp Detected (NOT DETECT); Shiga Toxin-prod E. coli-STEC Not Detected (NOT DETECT); Shigella/Enteroin E. coli-EIEC Not Detected (NOT DETECT); Vibrio Sp Not Detected (NOT DETECT)
== END ==
LOC: LAB SHORT 21:30 → LAB 21:30
PROVIDERS: Hospitalist
DX: R19.7 Diarrhea, unspecified (principal)
CPT/HCPCS: 87507

== ENCOUNTER → 2025-01-12 | Outpatient (CLI) | payer MEDICARE, OTHER ==
[2025-01-12 21:43] LABS: Campylobacter Sp Not Detected (NOT DETECT); E. Coli O157 Not Detected (NOT DETECT); Enteroaggregative E. coli-EAEC Not Detected (NOT DETECT); Enteropathogenic E. coli-EPEC Not Detected (NOT DETECT); Enterotoxigenic E. coli-ETEC Not Detected (NOT DETECT); Salmonella Sp Detected (NOT DETECT); Shiga Toxin-prod E. coli-STEC Not Detected (NOT DETECT); Shigella/Enteroin E. coli-EIEC Not Detected (NOT DETECT); Vibrio Sp Not Detected (NOT DETECT)
== END ==
LOC: LAB 16:10 → LAB SHORT 16:10
PROVIDERS: Hospitalist
DX: R19.7 Diarrhea, unspecified (principal); Z86.19 Personal history of other infectious and parasitic diseases
CPT/HCPCS: 87324; 87507

== ENCOUNTER → 2025-02-09 | Outpatient (CLI) | payer MEDICARE, OTHER ==
[2025-02-09 18:40] LABS: Campylobacter Sp Not Detected (NOT DETECT); E. Coli O157 Not Detected (NOT DETECT); Enteroaggregative E. coli-EAEC Not Detected (NOT DETECT); Enteropathogenic E. coli-EPEC Not Detected (NOT DETECT); Enterotoxigenic E. coli-ETEC Not Detected (NOT DETECT); Salmonella Sp Detected (NOT DETECT); Shiga Toxin-prod E. coli-STEC Not Detected (NOT DETECT); Shigella/Enteroin E. coli-EIEC Not Detected (NOT DETECT); Vibrio Sp Not Detected (NOT DETECT)
== END ==
LOC: LAB SHORT 16:35 → LAB 16:35
PROVIDERS: Physician Assistant
DX: R19.7 Diarrhea, unspecified (principal)
CPT/HCPCS: 87324; 87507

== ENCOUNTER 2025-03-03 05:07 | Inpatient (IN) | payer MEDICARE, OTHER ==
[~2025-03-03] VITALS: Ht 195.6 cm; Wt 121.6 kg
[~2025-03-03 05:07] MED LIST changes: +GABAPENTIN600 MG PO; +Prednisone10 MG PO
[2025-03-03 06:15] LABS: BASOPHILS ABSOLUTE AUTO 0.11 K/mm3 (0.00-0.23); BASOPHILS PERCENT AUTO 1 % (0-2); EOSINOPHILS ABSOLUTE AUTO 0.31 K/mm3 (0.00-0.68); EOSINOPHILS PERCENT AUTO 1 % (0-6); Hematocrit 43.9 % (37.0-53.0); Hemoglobin 14.4 g/dL (13.5-17.5); IMMATURE GRAN ABSOLUTE AUTO 0.22 K/mm3 (0.00-0.10); IMMATURE GRAN PERCENT AUTO 1 % (0-1); LYMPHOCYTES ABSOLUTE AUTO 0.73 K/mm3 (0.84-5.20); LYMPHOCYTES PERCENT AUTO 3 % (21-46); MONOCYTES ABSOLUTE AUTO 2.14 K/mm3 (0.16-1.47); MONOCYTES PERCENT AUTO 9 % (4-13); Mean Corpuscular HGB Conc 32.8 g/dL (31.5-36.5); Mean Corpuscular Volume 90 fL (80-100); NEUTROPHILS ABSOLUTE AUTO 20.00 K/mm3 (1.96-9.15); NEUTROPHILS PERCENT AUTO 85 % (41-73); NRBC ABSOLUTE 0.00 K/mm3 (0.00-0.02); NRBC Auto 0.0 /100 WBC (0.0-0.2); Platelet Count 235 K/mm3 (150-400); RDW Coefficient Variation 14.4 % (11.7-14.2); RDW Standard Deviation 47.2 fL (35.1-46.3)
[2025-03-03] MEDS ORDERED: Ondansetron HCl 2 MG / ML 2ML Vial IV ONE (06:15)
[2025-03-03] MEDS ORDERED: NS 1,000 ML IV SCH ×2 (06:15→14:30)
[2025-03-03] MEDS ORDERED: Morphine Sulfate 4 MG/1 ML Injection IV ONE (06:15)
[2025-03-03 06:23] LABS: Alanine Aminotransfer (ALT/SGP 34.0 U/L (12-78); Albumin, Blood 3.5 g/dL (3.4-5.0); Albumin/Globulin Ratio 1.0 (0.8-1.8); Anion Gap 10.0 mmol/L (3-11); Aspartate Aminotrans (AST/SGOT 17.0 U/L (12-37); Bilirubin, Total 1.6 mg/dL (0.1-1.0); Blood Urea Nitrogen 28.0 mg/dL (8-24); CO2, Blood 26.0 mmol/L (21-32); Calcium, Blood 9.6 mg/dL (8.5-10.1); Chloride, Blood 103.0 mmol/L (98-108); Creatinine, Blood 1.98 mg/dL (0.60-1.20); Globulin, Blood 3.4 g/dL (2.2-4.0); Glucose, Blood 205.0 mg/dL (70-99); Potassium, Blood 3.8 mmol/L (3.5-5.5); Sodium, Blood 135.0 mmol/L (136-145); Total Protein, Blood 6.9 g/dL (6.4-8.2)
[2025-03-03] MEDS ORDERED: FLU VACC TS2025(65UP)/MF59C/PF 45 MCG/0.5 ML SYRINGE IM SCH (10:10)
[2025-03-03 10:44] LABS: C DIFFICILE DNA Duplicate (Negative)
[2025-03-03 11:53] VITALS: BP 108/55
[2025-03-03] MEDS ORDERED: PRED1 PO (12:01)
[2025-03-03] MEDS ORDERED: CARV6.25 PO (12:08)
[2025-03-03] MEDS ORDERED: Prinivil10 MG PO (12:11)
[2025-03-03] MEDS ORDERED: ASPIR 8181 M1 PO (12:12)
[2025-03-03] MEDS ORDERED: ASCO500 PO (12:15)
[2025-03-03] MEDS ORDERED: FURO20 PO (12:15)
[2025-03-03] MEDS ORDERED: PROBIOTIC1 EA13 PO (12:17)
[2025-03-03] MEDS ORDERED: DOFE500 PO (12:18)
[2025-03-03] MEDS ORDERED: LACTASE3000 UNI1 PO (12:47)
[2025-03-03] MEDS ORDERED: Miconazole Nitrate 2% 85 GM PWD TOP SCH (12:50)
--- NOTE | 2025-03-03 15:26 | NUR ---
PATIENT ADMITTED TO MEDICAL FLOOR. A/O X4. AT BEDSIDE. SEVERAL SKIN TEARS, PICS IN CHARTS. REPORTS FACIAL PAIN. DIFFUSE YEASTY LOOKING RASH, POWDER ORDERED, DOC MADE AWARE. SEVERAL LOOSE WATERY BM SINCE ADMIT. CONTACTED PHARMACY FOR ABX DOSING ORDERS PER YANELY.
[2025-03-03] MEDS ORDERED: DiphenhydrAMINE HCL/Zinc Acet Cream TOP PRN (16:40)
[2025-03-03 17:43] LABS: Prothrombin Time Results 21.6 Sec (9.7-11.5)
--- NOTE | 2025-03-03 18:18 | NUR ---
SHIFT SUMMARY PATIENT IS A&OX4, HE IS ON ROOM AIR, HE DOES NOT HAVE TELE BUT HE DOES HAVE A PACEMAKER HE REPORTS IS BOTH A AND V PACED. ON CONTACT PRECAUTIONS FOR AN ACTIVE C-DIFF INFECTION. HE HAS HAD MULTIPLE EPISODES OF WATERY GREEN-COLORED STOOL. HE HAS A RAISED RED RASH ON HIS B/L TRUNK, WELL YEASTY LOOKING REDNESS IN HIS CHIN, GROIN, AND ARMPIT FOLDS. HE HAS HAD A HEADACHE RELATED TO THE CONTUSION ON THE LEFT SIDE OF HIS FACE FROM A GLF AT HOME. MEDICATED WITH TYLENOL PER EMAR WITH EXCELLENT EFFECT. HE AMBULATES WITH SBA DUE TO WEAKNESS. HE IS CONTINENT, HAS HIS BIPAP FROM HOME AND RT DID CONSULT SO HE CAN USE THIS TONIGHT. MEDICATIONS RECONCILLED. WARFARIN 4MG GIVEN AT 1804 AFTER INR OF 2.07 WAS DRAWN BY LAB AT 1711. NS IS RUNNING AT 75ML/HR. HE HAS BEEN PLEASANT AND COOPERATIVE WITH CARE. USING THE CALL SYSTEM APPROPRIATELY. TO BRING HIM THE LACTAID MEDICATION IN THE AM. HE IS SITTING UP IN BED CURRENLTY, BED IS LOW AND LOCKED, CALL LIGHT IN REACH.
[2025-03-03 20:07] VITALS: BP 112/52
[2025-03-03 21:58] LABS: Source, Urine Clean Catch
[2025-03-03 22:03] LABS: Glucose Qualitative, Urine Neg (Neg); Ketones, Urine 1+ (Neg); Leukocyte Esterase, Urine 1+ (Neg); Protein, Urine 2+ (Neg); Specific Gravity, Urine 1.030 (1.003-1.022); Urobilinogen, Urine 1+ (Normal)
[2025-03-03 22:04] LABS: Bilirubin, Urine 1+ (Neg); Color, Urine Yellow (P-Yellow)
[2025-03-03 22:18] LABS: Red Blood Cells, Urine Not Seen /hpf (0-2)
[2025-03-04 02:53] LABS: Campylobacter Sp Not Detected (NOT DETECT); E. Coli O157 Not Detected (NOT DETECT); Enteroaggregative E. coli-EAEC Not Detected (NOT DETECT); Enteropathogenic E. coli-EPEC Not Detected (NOT DETECT); Enterotoxigenic E. coli-ETEC Not Detected (NOT DETECT); Salmonella Sp Not Detected (NOT DETECT); Shiga Toxin-prod E. coli-STEC Not Detected (NOT DETECT); Shigella/Enteroin E. coli-EIEC Not Detected (NOT DETECT); Vibrio Sp Not Detected (NOT DETECT)
[2025-03-04 04:31] LABS: Hematocrit 39.5 % (37.0-53.0); Hemoglobin 13.1 g/dL (13.5-17.5); Mean Corpuscular HGB Conc 33.2 g/dL (31.5-36.5); Mean Corpuscular Volume 89 fL (80-100); NRBC ABSOLUTE 0.00 K/mm3 (0.00-0.02); NRBC Auto 0.0 /100 WBC (0.0-0.2); Platelet Count 172 K/mm3 (150-400); RDW Coefficient Variation 14.4 % (11.7-14.2); RDW Standard Deviation 46.7 fL (35.1-46.3)
[2025-03-04 04:33] VITALS: BP 117/53
[2025-03-04 05:00] LABS: Prothrombin Time Results 20.3 Sec (9.7-11.5)
--- NOTE | 2025-03-04 06:05 | NUR ---
SHIFT SUMMARY PATIENT ADMITTED FOR CDIFF. PATIENT ALERT AND ORIENTED X4, ABLE TO MAKE NEEDS KNOWN AND CALLS APPROPRIATELY. PATIENT HAD DIARRHEA SEVERAL TIMES THIS SHIFT. URINE AND STOOL SAMPLES COLLECTED AND SENT TO THE LAB. DRESSING CHANGED ON RIGHT ELBOW. NO ACUTE OVERNIGHT EVENTS. PATIENT RESTING WITH EYES CLOSED AND BIPAP MASK IN PLACE, RESPIRATIONS EVEN AND UNLABORED. BED RAILS UP X3. CALL LIGHT WITHIN REACH. BED IN LOWEST POSITION FOR SAFETY.
[2025-03-04 06:27] LABS: Alanine Aminotransfer (ALT/SGP 26.0 U/L (12-78); Albumin, Blood 2.8 g/dL (3.4-5.0); Albumin/Globulin Ratio 1.0 (0.8-1.8); Anion Gap 13.0 mmol/L (3-11); Aspartate Aminotrans (AST/SGOT 16.0 U/L (12-37); Bilirubin, Total 0.9 mg/dL (0.1-1.0); Blood Urea Nitrogen 44.0 mg/dL (8-24); CO2, Blood 20.0 mmol/L (21-32); Calcium, Blood 8.6 mg/dL (8.5-10.1); Chloride, Blood 106.0 mmol/L (98-108); Creatinine, Blood 2.23 mg/dL (0.60-1.20); Globulin, Blood 2.9 g/dL (2.2-4.0); Glucose, Blood 183.0 mg/dL (70-99); Magnesium, Blood 2.1 mg/dL (1.6-2.4); Potassium, Blood 3.6 mmol/L (3.5-5.5); Sodium, Blood 135.0 mmol/L (136-145); Total Protein, Blood 5.7 g/dL (6.4-8.2)
[2025-03-04 07:42] VITALS: BP 137/61
[2025-03-04] MEDS ORDERED: Cholecalciferol 1000 Unit Tablet (=25MCG) PO SCH (09:00)
[2025-03-04] MEDS ORDERED: Lactobacil 2-S.Thermo-Bifido 1 1 Cap PO SCH (09:00)
[2025-03-04] MEDS ORDERED: Enoxaparin 40 MG/0.4 ML SYR SC SCH (09:00)
[2025-03-04 16:00] VITALS: BP 133/62
--- NOTE | 2025-03-04 17:32 | NUR ---
SHIFT SUMMARY PATIENT IS A&OX4, HE IS ON ROOM AIR, USING A CPAP AT NIGHT WITH 2L BLEED IN. HE DOES NOT HAVE TELE, HE IS AV PACED. HE HAS HAD >6 WATERY STOOLS TODAY. HE IS STRONGER TODAY THAN YESTERDAY AND STEADIER ON HIS FEET, THE PATIENT ENDORSES FEELING MUCH BETTER. FUNGAL MEDICATION WAS BEGAN IV FOR SYSTEMIC FUNGAL INFECTION. WE ARE CONTINUING TO USE THE DESENEX POWDER FOR ITCH RELIEF. HE IS AMBULATING WITH SBA TO THE BATHROOM. USING THE CALL SYSTEM APPROPRIATELY AND HAS BEEN COOPERATIVE WITH CARE AND PLEASANT TODAY. BED IS LOW AND LOCKED, CALL LIGHT IN REACH.
--- NOTE | 2025-03-04 18:13 | NUR ---
Call back - Pt appeared well taken care of. Began building rapport with Gregor as he began discussing how he came to be in the hospital. Pt had to use facilities and typewriter operator automatic stepped out. Pt's human factors specialist arrives and this asphalt mixer began discussing with him about pt. Popcorn Vendor steps away to give pt's human factors specialist room to tax evaluator. [place] provided.
--- NOTE | 2025-03-04 19:38 | NUR ---
GEOSPATIAL TECHNOLOGIST CALLED ME INTO THE ROOM TO INFORM ME PTS IV WAS LEAKING. IV STOPPED AND IV WAS FLUSHED. PT STATED THAT THERE WAS NO PAIN AT THE SITE OF THE IV OR WHEN FLUSHING THE IV. DRESSINF WAS CHANGED AND RECONNECTED TO NS AT 75 MLS/HR. THE DRESSING FOR THE PTS RIGHT ELBOW WAS ALSO RE DRESSED.
[2025-03-04 19:59] VITALS: BP 131/52
--- NOTE | 2025-03-05 04:02 | NUR ---
SHIFT SUMMARY: PT IS AOX4 AND A SBA. PT IS ABLE TO MAKE NEEDS KNOWN. PT HAS NS RUNNING AT 75 MLS/HR. NO ACUTE CHANGES THIS SHIFT.
[2025-03-05 05:00] LABS: Prothrombin Time Results 21.4 Sec (9.7-11.5)
[2025-03-05 08:02] VITALS: BP 144/74
[2025-03-05 15:16] VITALS: BP 158/77
--- NOTE | 2025-03-05 15:34 | NUR ---
Upon receiving a referral for spiritual care, I visited the patient. He talks at length about his medical issues, his family, and his adventist ([facility] in [place]). He tells me about his spiritual journey and his Religion 2 yrs ago, his history of career and location changes and his stroke and how his life has been altered by it. I provided therapeutic listening and prayer. He responded well and showed signs of an elevated mood.
[2025-03-05] MEDS ORDERED: MAGNESIUM OXID500 MG PO (17:11)
[2025-03-05] MEDS ORDERED: TOCO1000 PO (17:11)
[2025-03-05] MEDS ORDERED: CITRACAL PO (17:13)
--- NOTE | 2025-03-05 19:03 | NUR ---
SHIFT SUMMARY PATIENT A/OX4, ABLE TO MAKE NEEDS KNOWN. PLEASANT AND COOPERATIVE WITH CARE. INDEPENDENT IN ROOM. CONTINUES WITH FULL BODY RASH, BENADRYL ADMINISTERED PER DR. MATA WHICH PATIENT STATES WAS PARTIALLY EFFECTIVE IN RELIEVING THE ITHCING, HOWEVER RASH CONTINUES. CONTINUES WITH MULTIPLE WATER BOWEL MOVEMENTS TODAY. DRESSING TO LEFT ELBOW CHANGED, ORDERS RECIEVED FROM DR. MATA FOR WOUND CARE. IV FLUIDS RUNNING PER MAY, NO OTHER CONCERNS AT THIS TIME. WILL CONTINUE TO MONITOR.
[2025-03-05 20:25] VITALS: BP 141/77
--- NOTE | 2025-03-05 21:30 | NUR ---
HOSTPITALIST CALLED DUE TO PT STATING THE TAKE 500 MCG OF TIKOSYN BID AND IS ONLY RECIEVING 250 MCG BID. HOSPITALIST STATED THATS BECAUSE OF RENAL FUNCTION CURENTLY. PT THEN EDUCATED ON REASON WHY. PT EXPRESSED UNDERSTANDING. HOSPITALIST ALSO INFORMED OF RASH WORSENING AND PAIN AND ITCHING INCREASING. HOSPITALIST STATED HE WOULD PUT OWN ORDERS IN.
[2025-03-06 04:36] VITALS: BP 147/78
[2025-03-06 06:29] LABS: BASOPHILS ABSOLUTE AUTO 0.05 K/mm3 (0.00-0.23); BASOPHILS PERCENT AUTO 1 % (0-2); EOSINOPHILS ABSOLUTE AUTO 0.53 K/mm3 (0.00-0.68); EOSINOPHILS PERCENT AUTO 6 % (0-6); Hematocrit 36.8 % (37.0-53.0); Hemoglobin 12.5 g/dL (13.5-17.5); IMMATURE GRAN ABSOLUTE AUTO 0.07 K/mm3 (0.00-0.10); IMMATURE GRAN PERCENT AUTO 1 % (0-1); LYMPHOCYTES ABSOLUTE AUTO 0.36 K/mm3 (0.84-5.20); LYMPHOCYTES PERCENT AUTO 4 % (21-46); MONOCYTES ABSOLUTE AUTO 1.06 K/mm3 (0.16-1.47); MONOCYTES PERCENT AUTO 12 % (4-13); Mean Corpuscular HGB Conc 34.0 g/dL (31.5-36.5); Mean Corpuscular Volume 89 fL (80-100); NEUTROPHILS ABSOLUTE AUTO 6.57 K/mm3 (1.96-9.15); NEUTROPHILS PERCENT AUTO 76 % (41-73); NRBC ABSOLUTE 0.00 K/mm3 (0.00-0.02); NRBC Auto 0.0 /100 WBC (0.0-0.2); Platelet Count 172 K/mm3 (150-400); RDW Coefficient Variation 14.4 % (11.7-14.2); RDW Standard Deviation 46.6 fL (35.1-46.3)
[2025-03-06 06:41] LABS: Prothrombin Time Results 29.1 Sec (9.7-11.5)
[2025-03-06 06:55] LABS: Alanine Aminotransfer (ALT/SGP 22.0 U/L (12-78); Albumin, Blood 2.7 g/dL (3.4-5.0); Albumin/Globulin Ratio 0.9 (0.8-1.8); Anion Gap 10.0 mmol/L (3-11); Aspartate Aminotrans (AST/SGOT 14.0 U/L (12-37); Bilirubin, Total 0.9 mg/dL (0.1-1.0); Blood Urea Nitrogen 18.0 mg/dL (8-24); CO2, Blood 23.0 mmol/L (21-32); Calcium, Blood 8.6 mg/dL (8.5-10.1); Chloride, Blood 109.0 mmol/L (98-108); Creatinine, Blood 0.87 mg/dL (0.60-1.20); Globulin, Blood 3.1 g/dL (2.2-4.0); Glucose, Blood 157.0 mg/dL (70-99); Magnesium, Blood 2.0 mg/dL (1.6-2.4); Phosphorus, Blood 1.9 mg/dL (2.5-4.9); Potassium, Blood 3.8 mmol/L (3.5-5.5); Sodium, Blood 138.0 mmol/L (136-145); Total Protein, Blood 5.8 g/dL (6.4-8.2)
[2025-03-06 07:39] VITALS: BP 152/78
[2025-03-06] MEDS ORDERED: Potassium Phos/Sodium Phos 250 MG PACK PO ONE (14:00)
--- NOTE | 2025-03-06 17:54 | NUR ---
NOTE PT ALERT AND ORIENTED. FREQUENTLY UP TO BATHROOM D/T LOOSE STOOL. POSTERIOR SKIN RASH NOTED. BENADRYL GIVEN PRN. DR MATA DID INCREASE THE DOSE. BENADRYL DOES HELP. VSS. CONTACT ISOLATION FOR CDIFF. IV PATENT. DENIED PAIN. GOOD APPETITE. DRINKING WELL.
[2025-03-06 19:50] VITALS: BP 175/86
[2025-03-06 21:05] VITALS: BP 146/64
[2025-03-07 04:23] VITALS: BP 150/83
[2025-03-07 05:05] LABS: Prothrombin Time Results 37.1 Sec (9.7-11.5)
[2025-03-07 05:19] LABS: Albumin, Blood 2.5 g/dL (3.4-5.0); Anion Gap 9 mmol/L (3-11); Blood Urea Nitrogen 11 mg/dL (8-24); CO2, Blood 23 mmol/L (21-32); Calcium, Blood 8.5 mg/dL (8.5-10.1); Chloride, Blood 109 mmol/L (98-108); Creatinine, Blood 0.87 mg/dL (0.60-1.20); Glucose, Blood 155 mg/dL (70-99); Phosphorus, Blood 2.6 mg/dL (2.5-4.9); Potassium, Blood 3.8 mmol/L (3.5-5.5); Sodium, Blood 137 mmol/L (136-145)
--- NOTE | 2025-03-07 06:11 | NUR ---
SHIFT SUMMARY; PT A/OX4, PLEASANT, AND INDEPENDENT IN THE ROOM. PT REPORTS ONE BM THROUGHOUT THE NIGHT, DESCRIBED FIRMER, HOWEVER MUCUSY. PT'S ABD FEELS FIRM UPON PALPATION, HOWEVER PT STATES THAT AFTER HIS HERNIA REPAIR SURGERY, THIS IS BASELINE FOR HIM. PT DENIES PAIN IN ABD. PT REPORTS GREAT IMPROVEMENT IN THE RASH W/ LESS ITCHING, ABLE TO TOLERATE APPLICATION OF POWDER. PT WEARING CPAP T/O THE NIGHT, TOLERATING WELL. PT MEDICATED PER EMAR. VSS. BED IN LOWEST POSITION AND CALL LIGHT WITHIN REACH.
[2025-03-07 07:39] VITALS: BP 177/76
[2025-03-07] MEDS ORDERED: Potassium Phos/Sodium Phos 250 MG PACK PO ONE (13:00)
[2025-03-07 16:58] VITALS: BP 179/86
--- NOTE | 2025-03-07 18:22 | NUR ---
NOTE PT ALERT. LOOSE STOOL HAS LESSENED. VSS. RA. PT RESEARCHING FECAL TRANSPLANT PER DR MATA. RASH ON POSTERIOR BODY HAS DECREASED FROM TOMATO RED TO DUSKY LIGHT PINK. HE DID ALLOW POWDER TO BE RUBBED ACROSS HIS BACK. GOOD APPETTIE. DENIED DISCOMFORT. BENADRYL GIVEN FOR RASH.
[2025-03-07 19:54] VITALS: BP 156/86
[2025-03-08 04:05] VITALS: BP 172/89
--- NOTE | 2025-03-08 06:11 | NUR ---
SHIFT SUMMARY; PT A/OX4, PLEASANT, AND IS INDEPENDENT IN THE ROOM. PT REPORTS FIRMER STOOLS, W/ PUDDING CONSISTENCY, AND CONTINUED MODERATE AMOUNT OF MUCUS SEEN. PT STILL NOTES PURITIS DUE TO RASH, HOWEVER S/SXS DO IMPROVE W/ PO BENADRYL. PT DOES STATE THAT IT IS STILL DIFFICULT TO WEAR CLOTHING DUE TO BURNING SENSATION WHEN IT TOUCHES THE RASH. L HAND IV REMOVED DUE TO LOSS OF PATENCY. DUE TO D/C'D IV FLUIDS AND MEDS, CALL PLACED TO DR. ALVAREZ TO ASK FOR NO IV ACCESS ORDER. VSS, HOWEVER BP IS HYPERTENSIVE W/ SYSTOLIC READING BETWEEN 150-170S. BED IN LOWEST POSITION AND CALL LIGHT WITHIN REACH.
[2025-03-08 07:52] VITALS: BP 174/93
[2025-03-08 09:40] LABS: BASOPHILS ABSOLUTE AUTO 0.04 K/mm3 (0.00-0.23); BASOPHILS PERCENT AUTO 0 % (0-2); EOSINOPHILS ABSOLUTE AUTO 0.37 K/mm3 (0.00-0.68); EOSINOPHILS PERCENT AUTO 4 % (0-6); Hematocrit 39.0 % (37.0-53.0); Hemoglobin 12.9 g/dL (13.5-17.5); IMMATURE GRAN ABSOLUTE AUTO 0.12 K/mm3 (0.00-0.10); IMMATURE GRAN PERCENT AUTO 1 % (0-1); LYMPHOCYTES ABSOLUTE AUTO 0.50 K/mm3 (0.84-5.20); LYMPHOCYTES PERCENT AUTO 5 % (21-46); MONOCYTES ABSOLUTE AUTO 0.62 K/mm3 (0.16-1.47); MONOCYTES PERCENT AUTO 7 % (4-13); Mean Corpuscular HGB Conc 33.1 g/dL (31.5-36.5); Mean Corpuscular Volume 87 fL (80-100); NEUTROPHILS ABSOLUTE AUTO 7.79 K/mm3 (1.96-9.15); NEUTROPHILS PERCENT AUTO 83 % (41-73); NRBC ABSOLUTE 0.00 K/mm3 (0.00-0.02); NRBC Auto 0.0 /100 WBC (0.0-0.2); Platelet Count 214 K/mm3 (150-400); RDW Coefficient Variation 13.8 % (11.7-14.2); RDW Standard Deviation 44.4 fL (35.1-46.3)
[2025-03-08 09:57] LABS: Prothrombin Time Results 34.0 Sec (9.7-11.5)
[2025-03-08 09:59] LABS: Albumin, Blood 2.9 g/dL (3.4-5.0); Anion Gap 8 mmol/L (3-11); Blood Urea Nitrogen 10 mg/dL (8-24); CO2, Blood 26 mmol/L (21-32); Calcium, Blood 9.2 mg/dL (8.5-10.1); Chloride, Blood 107 mmol/L (98-108); Creatinine, Blood 0.80 mg/dL (0.60-1.20); Glucose, Blood 164 mg/dL (70-99); Phosphorus, Blood 2.1 mg/dL (2.5-4.9); Potassium, Blood 3.8 mmol/L (3.5-5.5); Sodium, Blood 137 mmol/L (136-145)
[2025-03-08] MEDS ORDERED: Potassium Phos/Sodium Phos 250 MG PACK PO ONE (12:00)
[2025-03-08 16:02] VITALS: BP 182/92
--- NOTE | 2025-03-08 18:52 | NUR ---
SHIFT SUMMARY PT IS A/OX4. INDEPENDENT IN THE ROOM. PT CONTINUES TO REPORTS LOOSE, PUDDING TEXTURED STOOL WITH MUCUS THROUGHOUT THIS SHIFT. ON RA, SATS >92%. FAMILY AT BEDSIDE THIS EVENING. PT IS PLEASANT AND COOPERATIVE WITH CARE AND CALLS APPROPRIATELY USING THE CALL LIGHT.
[2025-03-08 20:18] VITALS: BP 166/83
[2025-03-08] MEDS ORDERED: Banana Flakes/Tos 1 EA Powder Pack PO SCH (21:00)
--- NOTE | 2025-03-09 04:12 | NUR ---
NO ACUTE CHANGES DURING SHIFT. PATIENT ALERT AND ORIENTED X4, ABLE TO MAKE NEEDS KNOWN. PATIENT ON ROOM AIR SATING >92%, USING CPAP AT NIGHT. PATIENT UP INDEPENDENTLY TO THE BATHROOM. PATIENT MEDICATED FOR ITCHING/RASH-SEE EMAR. BED IS IN LOW POSITION WITH WHEELS LOCKED. CALL LIGHT WITHIN REACH.
[2025-03-09 04:28] VITALS: BP 169/88
--- NOTE | 2025-03-09 04:55 | NUR ---
RN NOTIFIED DR. ALVAREZ OF PATIENT ELEVATED BLOOD PRESSURE. RN INQUIRED ABOUT HIS HOME ANTIHYPERTENSION MEDICATIONS. DR ALVAREZ STATED "I WILL TAKE A LOOK FOR CONTRAINDICATIONS." RN ALSO ASKED ABOUT POSSIBLE PRN MEDICATION FOR HYPERTENSION; DR ALVAREZ STATED " LONG THE SYSTOLIC STAYS UNDER 190 HE SHOULD BE OKAY. I WILL TAKE A LOOK AT HIS CHART." NO NEW ORDERS AT THIS TIME.
[2025-03-09 08:00] VITALS: BP 186/91
[2025-03-09 08:40] LABS: Prothrombin Time Results 27.2 Sec (9.7-11.5)
[2025-03-09 08:45] LABS: Albumin, Blood 3.1 g/dL (3.4-5.0); Anion Gap 8 mmol/L (3-11); Blood Urea Nitrogen 11 mg/dL (8-24); CO2, Blood 26 mmol/L (21-32); Calcium, Blood 9.4 mg/dL (8.5-10.1); Chloride, Blood 108 mmol/L (98-108); Creatinine, Blood 0.79 mg/dL (0.60-1.20); Glucose, Blood 122 mg/dL (70-99); Phosphorus, Blood 2.2 mg/dL (2.5-4.9); Potassium, Blood 3.8 mmol/L (3.5-5.5); Sodium, Blood 138 mmol/L (136-145)
--- NOTE | 2025-03-09 19:29 | NUR ---
SHIFT SUMMARY PT A&OX4, HTN, RA, NON-TELE. PT HAD 4 SMALL MUSHY BMS WITH MUCUS THIS SHIFT, STATES IMPROVEMENT WITH BANANA FLAKES. IND IN ROOM. HOME BLOOD PRESSURE MEDICATIONS RESUMED. PT PLEASANT AND COOPERATIVE WITH CARE. CALL LIGHT IN REACH.
[2025-03-09 20:08] VITALS: BP 154/81
[2025-03-09] MEDS ORDERED: HYDROcodone 5-APAP 325 TAB PO PRN (23:30)
[2025-03-10] VITALS (14 sets, daily range): BP systolic 166–201; BP diastolic 78–100
--- NOTE | 2025-03-10 04:56 | NUR ---
NO ACUTE CHANGES DURING SHIFT. PATIENT A&OX4, ABLE TO MAKE NEEDS KNOWN. PATIENT UP TO BATHROOM INDEPENDENTLY, ABLE TO TURN SELF IN BED. PATIENT ON ROOM AIR DURING DAY BUYT USES CPAP AT NIGHT. DR. ALVAREZ NOTIFIED OF PATIENTS ELEVATED BLOOD PRESSURES. DR. ALVAREZ STATED "I WILL REVIEW CHART AND PUT SOMETHING IN." PATIENT ON CONTACT ENTERIC FOR C-DIFF-PT REPORTS NO BOWEL MOVEMENT DURING THE NIGHT. BED IN LOW POSITION WITH WHEELS LOCKED. CALL LIGHT WITHIN REACH.
[2025-03-10] MEDS ORDERED: HydrALAZINE HCl 20 MG / ML 1ML Vial IV PRN (05:00)
[2025-03-10 05:12] LABS: BASOPHILS ABSOLUTE AUTO 0.04 K/mm3 (0.00-0.23); BASOPHILS PERCENT AUTO 1 % (0-2); EOSINOPHILS ABSOLUTE AUTO 0.52 K/mm3 (0.00-0.68); EOSINOPHILS PERCENT AUTO 6 % (0-6); Hematocrit 40.2 % (37.0-53.0); Hemoglobin 13.3 g/dL (13.5-17.5); IMMATURE GRAN ABSOLUTE AUTO 0.37 K/mm3 (0.00-0.10); IMMATURE GRAN PERCENT AUTO 4 % (0-1); LYMPHOCYTES ABSOLUTE AUTO 0.76 K/mm3 (0.84-5.20); LYMPHOCYTES PERCENT AUTO 9 % (21-46); MONOCYTES ABSOLUTE AUTO 0.67 K/mm3 (0.16-1.47); MONOCYTES PERCENT AUTO 8 % (4-13); Mean Corpuscular HGB Conc 33.1 g/dL (31.5-36.5); Mean Corpuscular Volume 89 fL (80-100); NEUTROPHILS ABSOLUTE AUTO 6.52 K/mm3 (1.96-9.15); NEUTROPHILS PERCENT AUTO 73 % (41-73); NRBC ABSOLUTE 0.00 K/mm3 (0.00-0.02); NRBC Auto 0.0 /100 WBC (0.0-0.2); Platelet Count 281 K/mm3 (150-400); RDW Coefficient Variation 14.0 % (11.7-14.2); RDW Standard Deviation 45.3 fL (35.1-46.3)
[2025-03-10 05:28] LABS: Prothrombin Time Results 29.8 Sec (9.7-11.5)
[2025-03-10 05:29] LABS: Albumin, Blood 3.1 g/dL (3.4-5.0); Anion Gap 6 mmol/L (3-11); Blood Urea Nitrogen 11 mg/dL (8-24); CO2, Blood 31 mmol/L (21-32); Calcium, Blood 9.7 mg/dL (8.5-10.1); Chloride, Blood 106 mmol/L (98-108); Creatinine, Blood 0.87 mg/dL (0.60-1.20); Glucose, Blood 138 mg/dL (70-99); Phosphorus, Blood 2.6 mg/dL (2.5-4.9); Potassium, Blood 3.9 mmol/L (3.5-5.5); Sodium, Blood 139 mmol/L (136-145)
--- NOTE | 2025-03-10 18:02 | NUR ---
SHIFT SUMMARY PT IS A/OX4. INDEPENDENT IN THE ROOM. PT REPORTS MULTIPLE STOOLS THROUGHOUT THIS SHIFT, HOWEVER MUCH MORE FORMED. BP'S REMAINS REMAIN ELEVATED, PHYSICAN AWARE. PT REPORTS IMPROVEMENT TO RASH TO BACK, NECK, AND ARMPITS, HOWEVER ITCHY, MEDICATED PER MAR. PT IS PLEASANT AND COOPERATIVE WITH CARE AND CALLS APPROPRIATELY.
[2025-03-10] MEDS ORDERED: Petrolatum/Mineral Oil/Lanolin 1 APPLIC/50 GM Tube TOP SCH (21:00)
[2025-03-11] VITALS (9 sets, daily range): BP systolic 150–195; BP diastolic 79–104
--- NOTE | 2025-03-11 04:16 | NUR ---
NO ACUTE CHANGES DURING SHIFT. PATIET ALERT AND ORIENTED X4, ABLE TO MKE NEEDS KNOWN. PATIENT ABLE TO TURN SELF IN BED; UP INDEPENDENTLY IN ROOM. PATIENT HAD ONE BOWEL MOVEMENT DURING SHIFT. PATIENT ON ROOM AIR; USES CPAP AT NIGHT. BED IN LOW POSITION WITH WHEELS LOCKED, CALL LIGHT WITHIN REACH
[2025-03-11 06:06] LABS: Prothrombin Time Results 29.7 Sec (9.7-11.5)
--- NOTE | 2025-03-11 06:41 | NUR ---
RN NOTIFIED DR. ALVAREZ OF PATIENT ELEVATED BLOOD PRESSURE AFTER RECEIVING 10 MG PO HYDRALAZINE PO. DR. ALVAREZ THEN ORDERED A ONE TIME DOSE OF 10 MG HYDRALAZINE PO AND CHANGED THE PRN HYDRALAZINE ORDER TO 25 MG PO PRN QID FOR SBP >180.
--- NOTE | 2025-03-11 16:28 | NUR ---
SHIFT SUMMARY PT IS A/OX4. INDEPENDENT IN THE ROOM. NO ACUTE CHANGES THROUGHOUT THIS SHIFT. BP'S REMAIN ELEVATED, MEDICATED PER MAR. PT REPORTS X3 FORMED BM'S THROUGHOUT THIS SHIFT. VOIDING FREQUENTLY.
[2025-03-12 02:05] VITALS: BP 136/81
--- NOTE | 2025-03-12 04:23 | NUR ---
BODY ART TECHNICIAN SUMMARY PT A&OX4, VSS. ABLE TO COMMUNICATE NEEDS APPROPRIATELY. NO ACUTE CHANGES THIS SHIFT. PT HAS BEEN ASLEEP FOR THE GREATER HALF OF THE SHIFT. CHEST RISE/RESPIRATIONS NOTED. PT STATES NO BM THIS SHIFT AT TIME OF NOTE. BED RAILS UP X 2, BED IN LOWEST POSITION, BED WHEELS LOCKED, PERSONAL BELONGINGS AND CALL LIGHT WITHIN REACH FOR SAFETY.
[2025-03-12 06:37] LABS: BASOPHILS ABSOLUTE AUTO 0.08 K/mm3 (0.00-0.23); BASOPHILS PERCENT AUTO 1 % (0-2); EOSINOPHILS ABSOLUTE AUTO 0.29 K/mm3 (0.00-0.68); EOSINOPHILS PERCENT AUTO 3 % (0-6); Hematocrit 40.0 % (37.0-53.0); Hemoglobin 13.5 g/dL (13.5-17.5); IMMATURE GRAN ABSOLUTE AUTO 0.51 K/mm3 (0.00-0.10); IMMATURE GRAN PERCENT AUTO 5 % (0-1); LYMPHOCYTES ABSOLUTE AUTO 0.97 K/mm3 (0.84-5.20); LYMPHOCYTES PERCENT AUTO 9 % (21-46); MONOCYTES ABSOLUTE AUTO 0.63 K/mm3 (0.16-1.47); MONOCYTES PERCENT AUTO 6 % (4-13); Mean Corpuscular HGB Conc 33.8 g/dL (31.5-36.5); Mean Corpuscular Volume 87 fL (80-100); NEUTROPHILS ABSOLUTE AUTO 8.61 K/mm3 (1.96-9.15); NEUTROPHILS PERCENT AUTO 78 % (41-73); NRBC ABSOLUTE 0.00 K/mm3 (0.00-0.02); NRBC Auto 0.0 /100 WBC (0.0-0.2); Platelet Count 302 K/mm3 (150-400); RDW Coefficient Variation 13.9 % (11.7-14.2); RDW Standard Deviation 43.9 fL (35.1-46.3)
[2025-03-12 06:56] LABS: Albumin, Blood 3.2 g/dL (3.4-5.0); Anion Gap 6 mmol/L (3-11); Blood Urea Nitrogen 14 mg/dL (8-24); CO2, Blood 31 mmol/L (21-32); Calcium, Blood 9.4 mg/dL (8.5-10.1); Chloride, Blood 105 mmol/L (98-108); Creatinine, Blood 0.76 mg/dL (0.60-1.20); Glucose, Blood 132 mg/dL (70-99); Phosphorus, Blood 3.0 mg/dL (2.5-4.9); Potassium, Blood 3.6 mmol/L (3.5-5.5); Sodium, Blood 138 mmol/L (136-145)
[2025-03-12 07:02] LABS: Prothrombin Time Results 25.1 Sec (9.7-11.5)
--- NOTE | 2025-03-12 07:30 | NUR ---
INITIAL ASSESSMENT: Patient is awake sitting up in bed playing with his computer. He is alert and oriented. Denies pain at this time, he states his back is itching but also gautam, he states "it feels like hundreds of tiny needles are stabbing me in the back." HRR, BP 150s systocially-AM meds given at this time, will reassess. LS CTA, Biox WNL on RA. BT+, pt states his stool is now formed with the banana flakes. He denies other needs at this time. Call light in reach.
[2025-03-12 08:07] VITALS: BP 158/89
[2025-03-12 15:40] VITALS: BP 152/82
--- NOTE | 2025-03-12 17:47 | NUR ---
SUMMARY: Patient has been alert and oriented x4 T/O the shift. He has been IND in the room the bathroom. VSS, blood pressure has been in the 130s-150s systolic. Patient voiced some concern with MD today regarding increased swelling to BLE, additional dose of Lasix given. BT+, 2x soft formed stools today. BLE with trace edema. No acute changes this shift, report given to Dallin CORADO.
[2025-03-12 19:31] VITALS: BP 142/75
[2025-03-13 05:07] VITALS: BP 140/87
[2025-03-13 05:14] LABS: Prothrombin Time Results 25.6 Sec (9.7-11.5)
[2025-03-13 05:33] LABS: Anion Gap 8.0 mmol/L (3-11); Blood Urea Nitrogen 17.0 mg/dL (8-24); CO2, Blood 31.0 mmol/L (21-32); Calcium, Blood 9.1 mg/dL (8.5-10.1); Chloride, Blood 103.0 mmol/L (98-108); Creatinine, Blood 0.99 mg/dL (0.60-1.20); Glucose, Blood 141.0 mg/dL (70-99); Potassium, Blood 3.7 mmol/L (3.5-5.5); Sodium, Blood 138.0 mmol/L (136-145)
--- NOTE | 2025-03-13 06:16 | NUR ---
INTERNATIONAL STUDENT ADVISOR SUMMARY PT A&OX4, VSS. ABLE TO COMMUNICATE NEEDS APPROPRIATELY. NO ACUTE CHANGES THIS SHIFT. PT HAS BEEN ASLEEP FOR MOST OF THE SHIFT. CHEST RISE/RESPIRATIONS NOTED. NO BM'S NOTED THIS SHIFT. BED RAILS UP X 2, BED IN LOWEST POSITION, BED WHEELS LOCKED, PERSONAL BELONGINGS AND CALL LIGHT WITHIN REACH FOR SAFETY.
[2025-03-13 08:45] VITALS: BP 160/86
[2025-03-13 15:52] VITALS: BP 132/85
--- NOTE | 2025-03-13 17:28 | NUR ---
"SPiritual Care | Pt. requests Pt. is awake in bed and welcomes my visit. Pt. is pleasant and is known to his farmworker vegetable from the community. Facilitated a medical update and listened with interest and empathy. Pt. displays evidence of being engaged and aware. Consider matters of johanna and belief. Pastoral counselling psychologist is given as is encouragement. Prayed with the Pt. Pt. verbalized gratitude for the spiritual care visit and welcomed this farmworker vegetable to return."
--- NOTE | 2025-03-13 18:39 | NUR ---
NO ACUTE CHANGES THIS SHIFT. PT FEELING MUCH BETTER OVERALL. SOFT FORMED STOOLS THIS SHIFT. BLOOD PRESSURE IMPROVING OVER THE SHIFT. CALLS APPROPRIATELY. INDEPENDENT IN THE ROOM. PLAN FOR DISCHARGE TOMORROW.
[2025-03-13 19:29] VITALS: BP 143/76
[2025-03-14 04:37] VITALS: BP 133/87
[2025-03-14 05:42] LABS: Prothrombin Time Results 30.4 Sec (9.7-11.5)
--- NOTE | 2025-03-14 05:52 | NUR ---
Shift Summary - Events: No new events. Patient rested comfortably and was compliant with CPAP. Respirations are even and unlabored. - Orientation: A/Ox4. - Ambulation: Independent. - Medication: Taken whole with water. - Toileting: Continent x2.
[2025-03-14 06:15] LABS: Anion Gap 7.0 mmol/L (3-11); Blood Urea Nitrogen 19.0 mg/dL (8-24); CO2, Blood 31.0 mmol/L (21-32); Calcium, Blood 9.2 mg/dL (8.5-10.1); Chloride, Blood 102.0 mmol/L (98-108); Creatinine, Blood 0.99 mg/dL (0.60-1.20); Glucose, Blood 139.0 mg/dL (70-99); Potassium, Blood 4.0 mmol/L (3.5-5.5); Sodium, Blood 136.0 mmol/L (136-145)
[2025-03-14 08:00] VITALS: BP 150/90
[2025-03-14] MEDS ORDERED: BANATROL PLUS1 EAC1 PO (14:49)
--- NOTE | 2025-03-14 18:06 | NUR ---
DISCHARGE NOTE PT D/C HOME AT 1745. PT PROVIDED W/ VERBAL AND WRITTEN INSTRUCTIONS AND REPORTED UNDERSTANDING. PT A&OX4, VSS, AMB IND, TOLERATING PO, VOIDING, AND DENIED PAIN. BELONGINGS WERE RETURNED AND PT ESCOURTED OUT VIA W/C BY B[place] GARCIA.
== END 2025-03-14 17:44 | disposition home or self-care (01) | DRG 872 ==
LOC: ER 05:07 → MEDS 09:37 → ERHOLD 09:37 → MEDS 11:33
PROVIDERS: Emergency Medicine; Family Medicine; ADMIT Internal Medicine
DX: A41.9 Sepsis, unspecified organism (principal); N17.9 Acute kidney failure, unspecified; A04.71 Enterocolitis due to Clostridium difficile, recurrent; I48.92 Unspecified atrial flutter; I50.22 Chronic systolic (congestive) heart failure; I48.20 Chronic atrial fibrillation, unspecified; E87.20 Acidosis, unspecified; E11.9 Type 2 diabetes mellitus without complications; E86.0 Dehydration; D64.9 Anemia, unspecified; G47.33 Obstructive sleep apnea (adult) (pediatric); I25.10 Atherosclerotic heart disease of native coronary artery without angina pectoris; E78.5 Hyperlipidemia, unspecified; M19.90 Unspecified osteoarthritis, unspecified site; I34.0 Nonrheumatic mitral (valve) insufficiency; R65.20 Severe sepsis without septic shock; S00.83XA Contusion of other part of head, initial encounter; W19.XXXA Unspecified fall, initial encounter; L29.9 Pruritus, unspecified; M35.3 Polymyalgia rheumatica; L30.9 Dermatitis, unspecified; I27.20 Pulmonary hypertension, unspecified; I49.5 Sick sinus syndrome; I11.0 Hypertensive heart disease with heart failure; G62.9 Polyneuropathy, unspecified; Z88.0 Allergy status to penicillin; Z23 Encounter for immunization; Z88.5 Allergy status to narcotic agent; Z88.2 Allergy status to sulfonamides; Z91.041 Radiographic dye allergy status; Z79.01 Long term (current) use of anticoagulants; Z79.899 Other long term (current) drug therapy; Z79.52 Long term (current) use of systemic steroids; Z86.73 Personal history of transient ischemic attack (TIA), and cerebral infarction without residual deficits; Z85.46 Personal history of malignant neoplasm of prostate; I25.2 Old myocardial infarction; Z95.5 Presence of coronary angioplasty implant and graft; Z99.89 Dependence on other enabling machines and devices; Z87.19 Personal history of other diseases of the digestive system; Z95.2 Presence of prosthetic heart valve; Z87.68 Personal history of other (corrected) conditions arising in the perinatal period; Z90.49 Acquired absence of other specified parts of digestive tract; Z98.890 Other specified postprocedural states; Z87.891 Personal history of nicotine dependence; Z79.82 Long term (current) use of aspirin
CPT/HCPCS: 36415; 70450; 73080; 80048; 80053; 80069; 81001; 83605; 83735; 84100; 85025; 85027; 85610; 87040; 87086; 87507; 93005; 93010; 93306; 94762; 96374; 96375; 99285-25; A9270; J2248; J2270; J2405; J7030; J7512